=== PATIENT | female | born 1950 | race Caucasian/White ===

== ENCOUNTER 2018-10-13 13:21 | Outpatient (CLI) | payer MEDICARE ==
--- NOTE | 2018-10-14 08:49 | Mammography Report ---
Reason: SCREENING MAMMO Procedure Date: 10/13/2018 Accession Number: [id number] / [id number] Procedure: ALICIA - Screening Mammo w/Zack CPT Code: FULL RESULT: EXAM: Screening Mammo w/Zack DATE: 10/13/2018 2:30 PM CLINICAL HISTORY: Screening encounter. TECHNIQUE: Bilateral CC and MLO views were obtained. COMPARISON: 02/22/2016 through November 2009. FINDINGS: The breasts demonstrate diffuse fatty replacement bilaterally. There is a stable coarse right breast calcification, typically benign. No suspicious masses, clustered microcalcifications, or regions of architectural distortion are identified. IMPRESSION: Benign findings RECOMMENDATION: Routine annual screening unless otherwise clinically indicated. BIRADS CATEGORY 2: Benign findings STANDARD QUALIFYING STATEMENTS: 1. This examination was not reviewed with the aid of Computer-Aided Detection (CAD). 2. A negative or benign imaging report should not preclude biopsy if clinically suspicious findings are present. 3. Dense breasts may obscure an underlying neoplasm. 4. This examination was reviewed with the aid of 3D breast imaging (tomosynthesis).
== END 2018-10-13 13:22 | disposition home or self-care (01) ==
LOC: DI 13:21
PROVIDERS: ATTEND Internal Medicine
DX: Z12.31 Encounter for screening mammogram for malignant neoplasm of breast (principal)
CPT/HCPCS: 77063; 77067

== ENCOUNTER 2021-09-11 19:29 | Outpatient (CLI) | payer MEDICARE | END 2021-09-11 19:30 | disposition EMS.NT | LOC: EMS 19:29 | DX: Z03.89 Encounter for observation for other suspected diseases and conditions ruled out (principal) ==

== ENCOUNTER 2022-02-22 18:14 | Outpatient (CLI) | payer MEDICARE | END 2022-02-22 18:15 | disposition EMS.NT | LOC: EMS 18:14 | DX: S01.511A Laceration without foreign body of lip, initial encounter (principal); W01.198A Fall on same level from slipping, tripping and stumbling with subsequent striking against other object, initial encounter; Y92.030 Kitchen in apartment as the place of occurrence of the external cause | CPT/HCPCS: 81599 ==

== ENCOUNTER 2022-07-19 06:40 | Outpatient (CLI) | payer MEDICARE | END 2022-07-19 06:41 | disposition EMS.NT | LOC: EMS 06:40 | DX: Z03.89 Encounter for observation for other suspected diseases and conditions ruled out (principal) ==

== ENCOUNTER 2022-07-23 23:32 | Outpatient (CLI) | payer MEDICARE | END 2022-07-23 23:33 | disposition EMS.NT | LOC: EMS 23:32 | DX: Z03.89 Encounter for observation for other suspected diseases and conditions ruled out (principal) ==

== ENCOUNTER 2022-09-18 23:24 | Outpatient (CLI) | payer MEDICARE | END 2022-09-18 23:25 | disposition EMS.NT | LOC: EMS 23:24 | DX: R53.1 Weakness (principal) ==

== ENCOUNTER 2022-10-01 02:51 | Outpatient (CLI) | payer MEDICARE | END 2022-10-01 02:52 | disposition EMS.NT | LOC: EMS 02:51 | DX: Z03.89 Encounter for observation for other suspected diseases and conditions ruled out (principal) ==

== ENCOUNTER 2022-10-29 12:08 | Outpatient (CLI) | payer MEDICARE ==
--- NOTE | 2022-10-29 15:15 | XRAY Report ---
PROCEDURE: Knee 3 View LT INDICATIONS: LEFT KNEE PAIN TECHNIQUE: 3 views of the left knee were acquired. COMPARISON: None. FINDINGS: Bones: Generalized osteopenia. Joint space narrowing in the medial and lateral femorotibial compartm ents is well assessed on nonweightbearing images. Marginal osteophyte formation is seen. There is pro bable remodeling of the lateral tibial plateau articular surface although a mildly depressed fracture could appear similarly. Degenerative changes also seen in the anterior compartment. Soft tissues: Moderate joint effusion. No suspicious soft tissue calcifications. IMPRESSION: 1.Irregularity of the lateral tibial plateau articular surface may secondary to chronic osseous remod eling from degenerative changes versus a mildly depressed fracture. Recommend correlation with clinic al findings and history. MRI or CT could be performed for further evaluation if indicated clinically. 2.Moderate to severe osteoarthrosis. 3.Moderate joint effusion. Reviewed by: Jose Holloway MD on 10/29/2022 3:14 PM PST Approved by: Jose Holloway MD on 10/29/2022 3:14 PM PST Station ID: [id number]
== END 2022-10-29 12:09 | disposition home or self-care (01) ==
LOC: DI 12:08
PROVIDERS: ATTEND Internal Medicine
DX: M17.12 Unilateral primary osteoarthritis, left knee (principal); M25.462 Effusion, left knee; M85.89 Other specified disorders of bone density and structure, multiple sites

== ENCOUNTER 2022-10-29 12:11 | Outpatient (CLI) | payer MEDICARE ==
--- NOTE | 2022-10-29 15:54 | DEXA Report ---
PROCEDURE: Dexa Forearm INDICATIONS: OSTEOPENIA/ PT LIMITATION TECHNIQUE: Dual energy x-ray absorptiometry (DXA) was performed on a [employer] System. Regions measur ed are the AP Spine, femoral neck, and if needed forearm. COMPARISON: None. FINDINGS: Left forearm: Bone Mineral Density 0.950 g/cm/cm, T score 0.7, normal (T score greater or equal to -1.0: NORMAL) (T score from -1.1 to -2.4: OSTEOPENIA) (T score less than or equal to -2.5 to: OSTEOPOROSIS) Impression: Bone mineral density is within normal limits at the left forearm. Patients with diagnosis of osteoporosis or osteopenia should have regular bone mineral density assess ment. For those eligible for Medicare, routine testing is allowed once every 2 years. Testing frequ ency can be increased for patients who have rapidly progressing disease or for those who are receivin g medical therapy to restore bone mass. Reviewed by: Jose Holloway MD on 10/29/2022 3:52 PM PST Approved by: Jose Holloway MD on 10/29/2022 3:52 PM PST Station ID: [id number]
== END 2022-10-29 12:12 | disposition home or self-care (01) ==
LOC: DI 12:11
PROVIDERS: ATTEND Internal Medicine
DX: M85.89 Other specified disorders of bone density and structure, multiple sites (principal)

== ENCOUNTER 2022-10-29 12:12 | Outpatient (CLI) | payer MEDICARE ==
--- NOTE | 2022-10-30 10:46 | Mammography Report ---
BILATERAL DIGITAL SCREENING MAMMOGRAM 3D/2D: 10/29/2022 CLINICAL: Routine screening. Comparison is made to exams dated: 10/13/2018 mammogram, 02/12/2016 mammogram, 11/30/2009 mammogram, 11/15 mammogram, and 08/08/2004 mammogram - [facility]. Both breasts are almost entirely fatty (category a/<25% glandular tissue). No significant masses, calcifications, or other findings are seen in either breast. There has been no significant interval change. IMPRESSION: NEGATIVE There is no mammographic evidence of malignancy. A 1 year screening mammogram is recommended. Based on the Tyrer Cuzick model (a risk assessment model) the patients lifetime risk is 1.1% and her 10 year risk is 0.9%. According to the ACR, ACS, and NCCN guidelines, an annual breast MRI exam david g with mammogram is recommended if the patients lifetime risk is 20% or greater. This exam was interpreted at Station ID: [id number]. NOTE: For mammograms, a report in lay terms will be sent to the patient. Approximately 15% of breast malignancies will not be visualized mammographically. In the management of a palpable breast mass, a negative mammogram must not discourage biopsy of a clinically suspicious lesion. Electronically Signed By: Edwardo Wang M.D. acr/penrad:10/29/2022 17:22:56 ACR BI-RADS Category 1: Negative 3341F PARENCHYMAL PATTERN: (F) - The breast(s) demonstrate(s) diffuse fatty replacement. BI-RADS CATEGORY: (1) - 1 RECOMMENDATION: (ANNUAL) - Recommend routine annual screening mammography. [id number] 1 year screening LATERALITY: (B)
== END 2022-10-29 12:13 | disposition home or self-care (01) ==
LOC: DI 12:12
PROVIDERS: ATTEND Internal Medicine
DX: Z12.31 Encounter for screening mammogram for malignant neoplasm of breast (principal)

== ENCOUNTER 2022-11-24 18:55 | Outpatient (CLI) | payer MEDICARE | END 2022-11-24 18:56 | disposition EMS.NT | LOC: EMS 18:55 | DX: Z03.89 Encounter for observation for other suspected diseases and conditions ruled out (principal) ==

== ENCOUNTER 2022-12-21 19:22 | Outpatient (CLI) | payer MEDICARE | END 2022-12-21 19:23 | disposition critical access hospital (66) | LOC: EMS 19:22 | DX: R53.1 Weakness (principal); R29.6 Repeated falls | CPT/HCPCS: A0425; A0429 ==

== ENCOUNTER 2022-12-21 22:56 | Outpatient (CLI) | payer MEDICARE | END 2022-12-21 22:57 | disposition EMS.NT | LOC: EMS 22:56 | DX: Z03.89 Encounter for observation for other suspected diseases and conditions ruled out (principal) ==

== ENCOUNTER 2022-12-21 23:13 | Emergency (ER) | payer MEDICARE ==
[2022-12-21] MEDS ORDERED: HYDROcod/ACET 5/325 Prepack 4 PO STA (23:40)
[2022-12-21] MEDS ORDERED: ACETAMINOPHEN 325 MG TABLET PO STA (23:40)
--- NOTE | 2022-12-21 23:47 | ED Physician Documentation ---
PD HPI LOWER EXT INJURY - Stated complaint Stated Complaint: GLF - Chief complaint Chief Complaint: Trauma Ext - History of Present Illness PD HPI LOW EXT INJURY LOCATION: Right, Left, Knee, Ankle Type of injury: Fall (she has had trouble with walking due to arthritis in knees and wrists, and typically uses walker/scooter/walker to even get from bed to bathroom. She twisted ankle and fell yesterday, with pain in left ankle. Today twisted right ankle and has pain unable to stand on it. Called EMS.) Where injury occurred: Home Timing - onset: Today, Yesterday Timing - duration: Days Timing - details: Abrupt onset (has had mobilitiy difficulty for awhile due to knees and wrists. PCP referring her to rheumatology. Now with ankle pains/injuries.), Still present Improved by: Rest Worsened by: Moving, Other (walking) Associated symptoms: Swelling, Discolored (bruising at right ankle and left foot/toes). No: Weakness, Numbness Contributing factors: No: Anticoagulated Similar symptoms before: Has not had sx before Recently seen: Clinic Review of Systems Constitutional: denies: Fever, Chills Throat: denies: Sore throat Cardiac: denies: Chest pain / pressure Respiratory: denies: Cough GI: denies: Abdominal Pain Skin: denies: Abrasion (s), Laceration (s) Musculoskeletal: reports: Extremity pain (chronic of wrists and knees.). denies: Neck pain, Back pain Neurologic: reports: Generalized weakness. 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 - Present Medications Home Medications: Ambulatory Orders Medication Instructions Recorded Confirmed Metoprolol Tartrate 25 mg PO BID 06/23/14 12/21/22 Pravastatin Sodium 40 mg PO DAILY 11/14/15 12/21/22 Aspirin [[place] Aspirin] 81 mg PO DAILY 12/21/22 12/21/22 Benazepril HCl 20 mg PO DAILY 12/21/22 12/21/22 HYDROcod/ACETAM 5/325 [[place] 5/325] 1 ea PO Q6H PRN #18 tablet 12/22/22 - Allergies Allergies/Adverse Reactions: Allergies Allergy/AdvReac Type Severity Reaction Status Date / Time Penicillins Allergy Unknown Verified 12/21/22 23:27 - Social History Does the pt smoke?: No Smoking Status: Never smoker Does the pt drink ETOH?: No Does the pt have substance abuse?: No PD ED PE NORMAL - Vitals Vital signs reviewed: Yes - General General: Alert and oriented X 3, No acute distress, Well developed/nourished, Other (high BMI over 50. ) - HEENT HEENT: Atraumatic - Neck Neck: Supple, no meningeal sign, No bony TTP - Respiratory Respiratory: No respiratory distress, Clear bilaterally - Abdomen Abdomen: Soft, Non tender, Other (obese) - Derm Derm: Normal color, Warm and dry - Extremities Extremities: Other (right ankle with tenderness medial and lateral. Ecchymosis medial inframalleolar. Pain with ROM. Left ankle also tender. Dorsum foot swollen and with bruising foot and toes. Knees are also tender anteriorly. Both wrists tender to palpation and tapping. Positive Tinnels sign. Fingers stiff diffusely.) - Neuro Neuro: Alert and oriented X 3, No motor deficit, No sensory deficit Results - Vitals Vitals: Vital Signs - 24 hr 12/21/22 12/22/22 12/22/22 23:14 00:50 01:31 Temperature 36.2 C L 36.9 C Heart Rate 69 63 64 Respiratory 18 16 16 Rate Blood Pressure 146/77 H 150/83 H 128/63 O2 Saturation 97 100 97 12/22/22 06:40 Temperature 36.9 C Heart Rate 79 Respiratory 16 Rate Blood Pressure 136/52 H O2 Saturation 98 Oxygen O2 Source Room air - Labs Labs: Laboratory Tests 12/22/22 12/22/22 12/22/22 00:21 00:21 00:21 WBC 12.1 H RBC 3.49 L Hgb 9.9 L Hct 31.4 L MCV 90.0 MCH 28.4 MCHC 31.5 L RDW 13.4 Plt Count 292 MPV 11.7 H Neut # (Auto) 9.6 H Lymph # (Auto) 1.5 [place] # (Auto) 1.0 Eos # (Auto) 0.0 Baso # (Auto) 0.0 Absolute Nucleated RBC 0.00 Nucleated RBC % 0.0 ESR 15 Sodium Potassium Chloride Carbon Dioxide Anion Gap BUN Creatinine Estimated GFR (MDRD) Glucose Calcium Total Bilirubin AST ALT Alkaline Phosphatase Total Protein Albumin Globulin Albumin/Globulin Ratio Lipase Rheumatoid Factor NEGATIVE 12/22/22 00:21 WBC RBC Hgb Hct MCV MCH MCHC RDW Plt Count MPV Neut # (Auto) Lymph # (Auto) [place] # (Auto) Eos # (Auto) Baso # (Auto) Absolute Nucleated RBC Nucleated RBC % ESR Sodium 135 Potassium 4.3 Chloride 101 Carbon Dioxide 24 Anion Gap 10.0 BUN 34 H Creatinine 0.9 Estimated GFR (MDRD) 62 L Glucose 138 H Calcium 9.2 Total Bilirubin 0.4 AST 14 ALT 14 Alkaline Phosphatase 65 Total Protein 7.4 Albumin 3.8 Globulin 3.6 Albumin/Globulin Ratio 1.1 Lipase 38 Rheumatoid Factor - Rads (name of study) bilateral knees Radiology: Prelim report reviewed (arthritic changes, no fractures. ), See rad report bilateral ankles Radiology: Prelim report reviewed (no fractures. Right ankle with wide medial joint line concerning for ligament injury. ), EMP read indepedently, See rad report PD Medical Decision Making - ED course Complexity details: reviewed results, re-evaluated patient (she was unable to ambulate with walker to the bathroom across [place] even with ankle braces. Unclear if able to get by at home. ? if needs home hospice aide/etc. ), considered differential, d/w patient Social Determinants of Health: she is very obese, making maneuvering difficult. Likely acute ankle ligament tear/sprain. ED course: At shift change, verbal report to oncoming EDMD. SW consult ordered. Departure - Departure Disposition: 01 Home, Self Care Clinical Impression: Accidental fall, Ankle sprain, Arthritis of knee, Polyarthralgia, Anemia Condition: Stable Record reviewed to determine appropriate education?: Yes Instructions: ED Sprain Ankle W X Ray, ED Degenerative Joint Disease Follow-Up: NAYLA HURTADO MD [Primary Care Provider] - Prescriptions: HYDROcod/ACETAM 5/325 [[place] 5/325] 1 ea PO Q6H PRN #18 tablet PRN Reason: Pain Comments: Your x-rays show notable arthritis in both knees. There are some arthritis in the ankles as well. No signs of fractures in either area. The right ankle joint space is slightly wide suggesting some partial tearing of ligaments. This would correspond with the pain that you have and less support and also the bruising on the inside of the ankle. I presume you have a partial tear of ligament through the ankle. This should be able to heal typically with time but it would be aided by having a ankle support/brace to wear most the time in particular when you are up and walking but even rested over the next 2 to 3 weeks to allow better healing. We did do some blood tests to start evaluating for immune type arthritis condi tions such as rheumatoid, lupus, and general inflammatory causes. This will give a start point for further work-up and evaluation by a freight engineer (as your primary care is trying to refer you to). Continue with the steroid dosing that was prescribed by your primary care. To that add Tylenol every 4-6 hours if needed for pain or hydrocodone/acetaminophen if needed for worse pain. The blood test results will not be available for a couple of days as they are send outs for hospital. Contact your primary care office on Saturday to have them check the results and also see how they are doing with the rheumatoid referral. If your blood tests are fairly normal, other consideration from the freight engineer could be evaluation of some of the joint fluid to look for pseudogout/gout/calcium pyrophosphate deposition. I would defer to the freight engineer. I sent your prescriptions to your preferred pharmacy. I am prescribing a short course of narcotic pain medication for you. These are potentially dangerous and addictive medications that should be used carefully. These medications may constipate you. Take an uhsq-dew-euzjzcm stool softener such as docusate twice daily with plenty of water while taking these medications. If you go 24 hours without a bowel movement, take fopr-cbk-qfatgil MiraLAX, per package instructions. Do not drink or drive while taking these medications. If you received narcotic or sedating medications while in the emergency department do not drive for 24 hours. Store this medication in a safe, secure place and out of reach of children. It is a violation of federal law to give or sell this medication to another person or to use in a manner other than prescribed. The ED will not refill narcotic prescriptions, including prescriptions lost or stolen. You can dispose of unwanted medications at the [facility]'s office or at several pharmacies such as [facility]. A home health referral has been made. Within 24 to 72 hours helpful arrive for continued recovery from your injuries. My recommendation is to move slowly in her home as you usually have been and get help whenever you need it. Discharge Date/Time: 12/22/22 12:08
[2022-12-22 00:27] LABS: BASOPHILS % (AUTO) 0.2 %; EOSINOPHILS % (AUTO) 0.2 %; HCT - HEMATOCRIT 31.4 % (37.0-47.0); HGB - HEMOGLOBIN 9.9 g/dL (12.0-16.0); LYMPHOCYTES # (AUTO) 1.5 10^3/uL (1.5-3.5); LYMPHOCYTES % (AUTO) 12.1 %; MEAN CORPUSCULAR HEMOGLOBIN 28.4 pg (27.0-31.0); MEAN CORPUSCULAR HGB CONC 31.5 g/dL (32.0-36.0); MEAN PLATELET VOLUME 11.7 fL (7.9-10.8); MONOCYTES % (AUTO) 8.1 %; NEUTROPHILS # (AUTO) 9.6 10^3/uL (1.5-6.6); NEUTROPHILS % (AUTO) 78.9 %; PLT - PLATELET COUNT 292 10^3/uL (130-450); RED BLOOD COUNT 3.49 10^6/uL (4.20-5.40); RED CELL DISTRIBUTION WIDTH 13.4 % (12.0-15.0); WHITE BLOOD COUNT 12.1 x10^3/uL (4.8-10.8)
[2022-12-22] MEDS ORDERED: HYDROcod/ACETAM 5/325 MG TABLET PO STA ×2 (00:43→11:43)
[2022-12-22] MEDS ORDERED: KETOROLAC 30 MG/ML VIAL IM STA (00:43)
--- NOTE | 2022-12-22 00:49 | XRAY Report ---
PROCEDURE: Ankle 3 View BILAT INDICATIONS: fall with twisting injury both sides, R>L. TECHNIQUE: 4 views of each ankle ankle were acquired. COMPARISON: None. FINDINGS: Right: Bones: No fractures or dislocations. There is widening of the ankle mortise laterally. There is mod erate degeneration dorsally in the mid foot. There is a small ossicle inferior to the lateral malleol us suggestive of a prior avulsion injury. Soft tissues: No tibiotalar joint effusion. There is periarticular soft tissue swelling laterally. Left: Bones: No fractures or dislocations. There is slight widening of the ankle mortise laterally. There is moderate degeneration dorsally in the mid foot. No suspicious bony lesions. Soft tissues: No tibiotalar joint effusion. There is periarticular soft tissue swelling, most promin ent laterally. IMPRESSION: 1. No fracture or dislocation. 2. Widening of the ankle mortise laterally, right greater than left. Findings are suggestive of ligam entous injury or fracture. Reviewed by: Bebeto Huang MD on 12/22/2022 12:47 AM PST Approved by: Bebeto Huang MD on 12/22/2022 12:47 AM PST Station ID: [id number]
--- NOTE | 2022-12-22 00:52 | XRAY Report ---
PROCEDURE: Knee 3 View BILAT INDICATIONS: fall with landing onto knees. TECHNIQUE: 4 views of each knee were acquired. COMPARISON: None. FINDINGS: Right knee: Bones: No fractures or dislocations. There is severe joint space narrowing in the medial compartmen t with subchondral sclerosis. There is tricompartmental osteophytosis. No suspicious bony lesions. Soft tissues: No joint effusion. No suspicious soft tissue calcifications. Left knee: Bones: No fractures or dislocations. No suspicious bony lesions. There is tricompartmental osteoph ytosis. Severe joint space tearing in the medial compartment with Soft tissues: No joint effusion. No suspicious soft tissue calcifications. IMPRESSION: 1. No fracture or dislocation. 2. Bilateral osteoarthritic changes including severe degeneration in the medial compartment. Reviewed by: Bebeto Huang MD on 12/22/2022 12:51 AM PST Approved by: Bebeto Huang MD on 12/22/2022 12:51 AM [facility] Station ID: [id number]
[2022-12-22 01:05] LABS: RHEUMATOID FACTOR NEGATIVE (Negative)
[2022-12-22 01:07] LABS: ALBUMIN 3.8 g/dL (3.2-5.5); ALBUMIN/GLOBULIN RATIO 1.1 (1.0-2.2); BILIRUBIN,TOTAL 0.4 mg/dL (0.2-1.0); CALCIUM 9.2 mg/dL (8.5-10.3); CREATININE 0.9 mg/dL (0.4-1.0); POTASSIUM 4.3 mmol/L (3.5-5.0); TOTAL PROTEIN 7.4 g/dL (6.7-8.2)
[2022-12-22 06:42] VITALS: BP 136/52
[2022-12-24 15:08] LABS: ANTI-DNA (DS) AB QN 2 IU/mL (0-9); CENTROMERE B ANTIBODIES <0.2 AI (0.0-0.9); CHROMATIN ANTIBODIES <0.2 AI (0.0-0.9); JO-1 AB <0.2 AI (0.0-0.9); RIBOSOMAL P ANTIBODIES <0.2 AI (0.0-0.9); RNP ANTIBODIES 0.2 AI (0.0-0.9); SCLERODERMA-70 ANTIBODIES <0.2 AI (0.0-0.9); SJOGREN'S ANTI-SS-A <0.2 AI (0.0-0.9); SJOGREN'S ANTI-SS-B <0.2 AI (0.0-0.9); SMITH ANTIBODIES <0.2 AI (0.0-0.9); SMITH/RNP ANTIBODIES <0.2 AI (0.0-0.9)
== END 2022-12-22 12:08 | disposition home or self-care (01) ==
LOC: EDUNIT# → ED 23:13
DX: E66.9 Obesity, unspecified (principal); Z68.43 Body mass index [BMI] 50.0-59.9, adult; M17.0 Bilateral primary osteoarthritis of knee; M19.072 Primary osteoarthritis, left ankle and foot; M19.071 Primary osteoarthritis, right ankle and foot; S93.401A Sprain of unspecified ligament of right ankle, initial encounter; X50.1XXA Overexertion from prolonged static or awkward postures, initial encounter; W18.39XA Other fall on same level, initial encounter; Y93.01 Activity, walking, marching and hiking; Y92.009 Unspecified place in unspecified non-institutional (private) residence as the place of occurrence of the external cause
CPT/HCPCS: 36415; 73562; 73610; 80053; 83690; 85025; 85651; 86200; 86225; 86235; 86430; 96372; 99283; 99284; A9270

== ENCOUNTER 2023-01-19 08:05 | Emergency (ER) | payer MEDICARE ==
--- NOTE | 2023-01-19 08:14 | ED Physician Documentation ---
PD HPI LOWER EXT INJURY - Stated complaint Stated Complaint: RT KNEE/FT PX - History obtained from History obtained from: Patient, EMS - History of Present Illness PD HPI LOW EXT INJURY LOCATION: Right, Foot Type of injury: Twist Where injury occurred: Home Timing - onset: Today Timing - details: Abrupt onset (she was getting up out of scooter and her foot tip caught on rug and bent back, causing her to fall forward. She was then unable to get up due to general strength and obesity. called ems for help. they brought her here for eval.) Review of Systems Skin: denies: Abrasion (s), Laceration (s) PD PAST MEDICAL HISTORY - Past Medical History Cardiovascular: Hypertension Endocrine/Autoimmune: Type 2 diabetes - Past Surgical History Past Surgical History: Yes /HVAC ESTIMATOR: Hysterectomy - Present Medications Home Medications: Ambulatory Orders Medication Instructions Recorded Confirmed Metoprolol Tartrate 25 mg PO BID 06/23/14 12/21/22 Pravastatin Sodium 40 mg PO DAILY 11/14/15 12/21/22 Aspirin [[place] Aspirin] 81 mg PO DAILY 12/21/22 12/21/22 Benazepril HCl 20 mg PO DAILY 12/21/22 12/21/22 HYDROcod/ACETAM 5/325 [[place] 5/325] 1 ea PO Q6H PRN #18 tablet 12/22/22 Chondroitin Sulfate/Turmeric 1 each PO DAILY 30 Days #30 tablet 01/19/23 [Invigoflex Cs 600-125 mg Cplt] Meloxicam [Mobic] 7.5 mg PO BID 30 Days #60 tablet 01/19/23 - Allergies Allergies/Adverse Reactions: Allergies Allergy/AdvReac Type Severity Reaction Status Date / Time Penicillins Allergy Unknown Verified 01/19/23 08:16 - Social History Does the pt smoke?: No Smoking Status: Never smoker Does the pt drink ETOH?: No Does the pt have substance abuse?: No - Immunizations Immunizations are current?: No Immunizations: TDAP >10years/unknown - POLST Patient has POLST: No PD ED PE NORMAL - Vitals Vital signs reviewed: Yes - General General: Alert and oriented X 3, Well developed/nourished, Other (high bmi. appears uncomfortable with foot and ankle movement. in pain from knees which she says is baseline. ) - HEENT HEENT: Atraumatic - Derm Derm: Normal color, Warm and dry - Extremities Extremities: Other (both ankles with loose ligaments and poor strength. Right foot with tenderness and bruising dorsum mid foot and pain with inversion stress testing. Achilles firm and intact. ) - Neuro Neuro: Alert and oriented X 3, No motor deficit, No sensory deficit, Normal speech Results - Vitals Vitals: Oxygen O2 Source Room air - Rads (name of study) right foot Relevant Findings:: Prelim report reviewed, EMP independent interpretation of test (no fractures seen; arthritic changes noted. ), See rad report PD Medical Decision Making - ED course Social Determinants of Health: she lives alone but does have home health aides frequently and they are available when she calls for extra. but mostly she minimally weight bears, with standing enough for pivot and transfer from scooter to walker to toilet. ED course: she has foot sprain with it hurting to stand. her knees chronically hurt as well. Needs to stand/walk minimally. Initially was not able to stand after eval here. Foot and knees still hurting. Given pain meds to help with that and ankle brace to support foot/ankle. after a few hours of time to rest, her ankle was improved a bit better to be able to stand. Social work talked with the patient about home versus other options. the patient did not have funds nor desire for SNF and prefers to go home. She was to call one of her aides to try to be there when patient arrives back. given foot injury, obesity, and minimal walking ability baseline, the patient was not appropriate for taxi/private vehicle. Departure - Departure Disposition: 01 Home, Self Care Clinical Impression: Difficulty walking Foot sprain Qualifiers: Encounter type: initial encounter Laterality: right Qualified Code(s): S93.601A - Unspecified sprain of right foot, initial encounter Knee pain Qualifiers: Chronicity: chronic Laterality: bilateral Qualified Code(s): M25.561 - Pain in right knee; M25.562 - Pain in left knee; G89.29 - Other chronic pain Condition: Stable Record reviewed to determine appropriate education?: Yes Instructions: ED Sprain Foot Follow-Up: [facility] [Provider Group] Prescriptions: Chondroitin Sulfate/Turmeric [Invigoflex Cs 600-125 mg Cplt] 1 each PO DAILY 30 Days #30 tablet Meloxicam [Mobic] 7.5 mg PO BID 30 Days #60 tablet Comments: Use the ankle braces to help support the ankles and less likely to twist and sprain the ankle and foot. Regarding your knees, we could try a different anti-inflammatory that lasts a little bit longer and see if that helps more consistently through the day. Meloxicam 7.5 mg twice daily. To that I would suggest using some Tylenol regularly 3-4 times daily. It may not make a dramatic difference but can help to even take a little the edge off the pain. To that add hydrocodone every 6-8 hours if needed at times of worst pain. Your knees may be degenerative enough to not be able to repair the cartilage but we could still try helping a bit with a supplement called chondroitin. Sometimes this helps rebuild the cartilage some. Continue with the physical therapy. Follow-up with your primary care and orthopedics regarding further assessment. You said you need surgery on your knees and hands. I sent your prescriptions to the [facility] mail order pharmacy through [employer]. Discharge Date/Time: 01/19/23 14:42
[2023-01-19 08:16] VITALS: BP 153/80
[2023-01-19] MEDS ORDERED: oxyCODONE 5 MG TABLET PO STA ×2 (08:19→10:07)
--- NOTE | 2023-01-19 09:00 | XRAY Report ---
PROCEDURE: Foot 3 View RT INDICATIONS: fall, foot twisted and painful TECHNIQUE: 3 views of the foot were acquired. COMPARISON: None FINDINGS: Bones: Diffusely decreased mineralization. This prevents accurate evaluation for nondisplaced fractu re. No displaced fractures are identified. Bone alignment is normal. Incidental note of moderate dors al midfoot degenerative spurs and calcaneal spurs. No fractures or dislocations. No suspicious bony lesions. Soft tissues: Prominent forefoot dorsal soft tissue swelling. No soft tissue gas or radiodense forei gn body. No tibiotalar joint effusion. Achilles tendon appears normal. IMPRESSION: 1. No visible displaced acute fractures. 2. Decreased mineralization prevents accurate evaluation for nondisplaced fractures. A nondisplaced f racture is not excluded. If there is continued concern, immobilization and reimaging in 10-14 days is recommended. Reviewed by: Vicky Berrios MD on 01/19/2023 8:58 AM PST Approved by: Vicky Berrios MD on 01/19/2023 8:58 AM PST Station ID: [id number]
[2023-01-19] MEDS ORDERED: KETOROLAC 30 MG/ML VIAL IM STA (09:32)
== END 2023-01-19 14:42 | disposition home or self-care (01) ==
LOC: EDUNIT# → ED 08:05
DX: S93.601A Unspecified sprain of right foot, initial encounter (principal); R26.2 Difficulty in walking, not elsewhere classified; W01.0XXA Fall on same level from slipping, tripping and stumbling without subsequent striking against object, initial encounter; Y93.89 Activity, other specified; Y92.89 Other specified places as the place of occurrence of the external cause; M25.562 Pain in left knee; M25.561 Pain in right knee; G89.29 Other chronic pain; E66.01 Morbid (severe) obesity due to excess calories; Z68.43 Body mass index [BMI] 50.0-59.9, adult
CPT/HCPCS: 73630; 96372; 99283; 99284; A9270

== ENCOUNTER → 2023-01-19 | Outpatient (CLI) | payer MEDICARE | END | disposition home or self-care (01) | LOC: EMS 14:45 | PROVIDERS: ATTEND Emergency Medicine | DX: S93.401A Sprain of unspecified ligament of right ankle, initial encounter (principal); W19.XXXA Unspecified fall, initial encounter; E66.01 Morbid (severe) obesity due to excess calories | CPT/HCPCS: A0425; A0428 ==

== ENCOUNTER → 2023-01-19 | Outpatient (CLI) | payer MEDICARE | END | disposition critical access hospital (66) | LOC: EMS 07:48 | DX: M79.671 Pain in right foot (principal); M25.561 Pain in right knee; W18.39XA Other fall on same level, initial encounter; Y93.01 Activity, walking, marching and hiking; Y92.038 Other place in apartment as the place of occurrence of the external cause | CPT/HCPCS: A0425; A0429 ==

== ENCOUNTER 2023-02-17 07:48 | Outpatient (CLI) | payer MEDICARE | END 2023-02-17 23:59 | disposition critical access hospital (66) | LOC: EMS 07:48 | DX: R53.1 Weakness (principal); R60.0 Localized edema | CPT/HCPCS: A0425; A0429 ==

== ENCOUNTER 2023-02-17 08:04 | Emergency (ER) | payer MEDICARE ==
--- NOTE | 2023-02-17 08:18 | ED Physician Documentation ---
PD HPI FOCAL NEURO - Stated complaint Stated Complaint: WEAKNESS - Chief complaint Chief Complaint: General - History obtained from History obtained from: Patient (Patient states her lift chair broke 5 days ago and she has been unable to get up to standing. Fire department has been coming several times daily to help her with that with lift assist. She typically had caregivers but a couple of them are sick or injured. She states her legs feel weaker/swollen.), EMS - History of Present Illness Timing - onset: How many days ago (4 days of unable to get up and to bathroom due to above issues. She has called FD for lift assist 5-6 times per day for past several days to assist.) Timing - duration: Days (4) Timing - details: Abrupt onset (The patient states her difficulties really relate to her power chair breaking 4 days ago. She has been having to sleep on a sofa with her legs just up on a ottoman. She states she has had more leg swelling and general weakness and unable to get up and get assistance. Less oral intake.), Still present Severity of deficit: Moderate Weakness: Other (generalized - no focal weakness.) Numbness: No: Face, Arm, Leg Associated symptoms: Other (general weakness). No: Headache, Nausea / vomiting Similar symptoms before: Diagnosis (Prior weak ankles and has ankle braces bilaterally. Bilateral knee pains due to arthritis and is due to have knee replacements bilaterally. General weakness and mobility difficulty due to obesity.) Review of Systems Constitutional: denies: Fever, Chills Nose: denies: Rhinorrhea / runny nose, Congestion Throat: denies: Sore throat Cardiac: denies: Chest pain / pressure Respiratory: denies: Dyspnea, Cough Neurologic: reports: Generalized weakness. denies: Near syncope, Altered mental status, Headache PD PAST MEDICAL HISTORY - Past Medical History Cardiovascular: Hypertension Respiratory: None Endocrine/Autoimmune: None, Type 2 diabetes Musculoskeletal: Osteoarthritis - Past Surgical History Past Surgical History: Yes /CRUSHER OPERATOR: Hysterectomy - Present Medications Home Medications: Ambulatory Orders Medication Instructions Recorded Confirmed Metoprolol Tartrate 25 mg PO BID 06/23/14 02/17/23 Pravastatin Sodium 40 mg PO DAILY 11/14/15 02/17/23 Aspirin [Searcy Aspirin] 81 mg PO DAILY 12/21/22 02/17/23 Benazepril HCl 20 mg PO DAILY 12/21/22 02/17/23 - Allergies Allergies/Adverse Reactions: Allergies Allergy/AdvReac Type Severity Reaction Status Date / Time Penicillins Allergy Unknown Verified 02/17/23 08:12 - Social History Does the pt smoke?: No Smoking Status: Never smoker Does the pt drink ETOH?: No Does the pt have substance abuse?: No - Immunizations Immunizations are current?: No Immunizations: TDAP >10years/unknown - POLST Patient has POLST: No PD ED PE NORMAL - Vitals Vital signs reviewed: Yes - General General: Alert and oriented X 3, Well developed/nourished - HEENT HEENT: Atraumatic, Pharynx benign - Neck Neck: Supple, no meningeal sign, No adenopathy - Cardiac Cardiac: RRR, No murmur - Respiratory Respiratory: Clear bilaterally - Abdomen Abdomen: Soft, Non tender - Derm Derm: Normal color, Warm and dry - Extremities Extremities: Other - Neuro Neuro: Alert and oriented X 3, No motor deficit (She has symmetric movement. She does have general weakness of both legs but she is able to move her feet and ankles well and partly lift up her legs. Arms seem better strength and still have symmetric movement.), No sensory deficit, Normal speech Results - Vitals Vitals: Vital Signs - 24 hr 02/17/23 02/17/23 02/17/23 08:12 08:49 10:16 Temperature 36.5 C Heart Rate 61 55 L 62 Respiratory 20 16 14 Rate Blood Pressure 131/72 H 131/50 H 130/65 O2 Saturation 98 97 96 02/17/23 02/17/23 02/17/23 11:16 13:00 14:23 Temperature 36.1 C L Heart Rate 61 59 L 58 L Respiratory 16 16 16 Rate Blood Pressure 128/72 131/68 H 133/70 H O2 Saturation 97 98 98 02/17/23 16:00 Temperature Heart Rate 69 Respiratory 16 Rate Blood Pressure 123/61 O2 Saturation 97 Oxygen O2 Source Room air - Labs Labs: Laboratory Tests 02/17/23 02/17/23 08:31 08:31 WBC 8.1 RBC 3.73 L Hgb 10.2 L Hct 32.9 L MCV 88.2 MCH 27.3 MCHC 31.0 L RDW 14.2 Plt Count 244 MPV 11.6 H Neut # (Auto) 5.7 Lymph # (Auto) 1.5 [place] # (Auto) 0.7 Eos # (Auto) 0.1 Baso # (Auto) 0.0 Absolute Nucleated RBC 0.00 Nucleated RBC % 0.0 Sodium 137 Potassium 3.9 Chloride 107 Carbon Dioxide 22 Anion Gap 8.0 BUN 28 H Creatinine 0.8 Estimated GFR (MDRD) 71 L Glucose 128 H Calcium 9.4 Magnesium 1.2 L Total Bilirubin 0.4 AST 15 ALT 15 Alkaline Phosphatase 66 Total Protein 7.3 Albumin 3.7 Globulin 3.6 Albumin/Globulin Ratio 1.0 Lipase 52 H PD Medical Decision Making - ED course Complexity details: considered differential (General weakness and difficulty ambulating and knee pains and deconditioning and obesity. She typically barely gets by with power lift chair and a's and use of scooter or walker. However her power chair and her home health aides are limited this week. She is getting a new chair tomorrow delivered), d/w patient Departure - Departure Clinical Impression: Generalized weakness, Bilateral knee pain Condition: Stable Record reviewed to determine appropriate education?: Yes
[2023-02-17 08:39] LABS: BASOPHILS % (AUTO) 0.5 %; EOSINOPHILS # (AUTO) 0.1 10^3/uL (0.0-0.7); EOSINOPHILS % (AUTO) 1.6 %; HCT - HEMATOCRIT 32.9 % (37.0-47.0); HGB - HEMOGLOBIN 10.2 g/dL (12.0-16.0); LYMPHOCYTES # (AUTO) 1.5 10^3/uL (1.5-3.5); LYMPHOCYTES % (AUTO) 17.9 %; MEAN CORPUSCULAR HEMOGLOBIN 27.3 pg (27.0-31.0); MEAN CORPUSCULAR VOLUME 88.2 fL (81.0-99.0); MEAN PLATELET VOLUME 11.6 fL (7.9-10.8); MONOCYTES # (AUTO) 0.7 10^3/uL (0.0-1.0); MONOCYTES % (AUTO) 8.8 %; NEUTROPHILS # (AUTO) 5.7 10^3/uL (1.5-6.6); NEUTROPHILS % (AUTO) 70.8 %; PLT - PLATELET COUNT 244 10^3/uL (130-450); RED BLOOD COUNT 3.73 10^6/uL (4.20-5.40); RED CELL DISTRIBUTION WIDTH 14.2 % (12.0-15.0); WHITE BLOOD COUNT 8.1 x10^3/uL (4.8-10.8)
[2023-02-17 08:51] LABS: ALBUMIN 3.7 g/dL (3.2-5.5); BILIRUBIN,TOTAL 0.4 mg/dL (0.2-1.0); CALCIUM 9.4 mg/dL (8.5-10.3); CREATININE 0.8 mg/dL (0.4-1.0); MAGNESIUM 1.2 mg/dL (1.7-2.8); POTASSIUM 3.9 mmol/L (3.5-5.0); TOTAL PROTEIN 7.3 g/dL (6.7-8.2)
[2023-02-17] MEDS ORDERED: HYDROcod/ACETAM 5/325 MG TABLET PO STA (11:33)
[2023-02-17] MEDS: MELOXICAM 7.5 MG TABLET PO SCH (11:39)
[2023-02-17] MEDS ORDERED: ACETAMINOPHEN 325 MG TABLET PO STA (22:32)
[2023-02-18] MEDS ORDERED: ZINC OXIDE 20% OINT 30 GM TUBE TOP ONE (03:13)
[2023-02-18] MEDS ORDERED: ZINC OXIDE 20% OINT 30 GM TUBE TOP STA (03:15)
[2023-02-18] MEDS: MELOXICAM 7.5 MG TABLET PO SCH (09:08)
--- NOTE | 2023-02-18 12:52 | XRAY Report ---
PROCEDURE: Knee 2 View RT INDICATIONS: chronic knee pain, increased recent fall TECHNIQUE: 2 views of the left knee(s) were acquired. COMPARISON: None. FINDINGS: Bones: Tricompartmental degenerative changes with tricompartmental osteophytes. There is medial join t space narrowing. Soft tissues: No effusion. No suspicious soft tissue calcifications or masses. IMPRESSION: Osteoarthritis with medial joint space narrowing. Reviewed by: Edwardo Wang on 02/18/2023 12:50 PM PDT Approved by: Edwardo Wang on 02/18/2023 12:50 PM PDT Station ID: [id number]
--- NOTE | 2023-02-18 14:35 | ED Physician Documentation ---
ED Addendum - Addendum Addendum: 02/18/23 14:31 The patient is complaining a lot of pain in her knees. She had slumped forward onto her knees the evening of coming in to the ER. We can do an x-ray on the right knee which is most tender with some swelling. Otherwise maintaining her current anti-inflammatories and regular medication. I added hydrocodone every 6 hours if needed for pain. She had been getting this. Physical therapy Lisha came by and evaluated the patient. There were unable to get her more than bedside and trying to stand but stopped at that because of the pain in the knees. Social work Jaimie talked with the patient and her varnish blender. Apparently there has been a adult care facility that has approved the patient and the patient has just needed to consent and go there. This apparently was just this past week. However the patient is looking more at needs of half-way facility perhaps and so social work is looking at insurance approval for [facility] that does have a bed available. Unfortunately the approval for that may take a day or 2. That would be the better option for the patient so it may be reasonable to give that timeframe for approval or not for the SNF and otherwise the adult care facility as a backup.
[2023-02-19] MEDS: HYDROcod/ACETAM 5/325 MG TABLET PO PRN ×2 (00:21→13:51)
[2023-02-19] MEDS: MELOXICAM 7.5 MG TABLET PO SCH (09:54)
--- NOTE | 2023-02-19 17:22 | ED Physician Documentation ---
ED Addendum - Addendum Addendum: 02/19/23 17:21 Social work was evaluating the patient's insurance and status and she apparently did not qualify for [facility] but does have the adult family home available. They can accept her tomorrow. They will get a bariatric bed. To continue her usual medications prescribed through her primary care. She will need ambulance transfer to there because of obesity and inability to walk because of knee pain.
[2023-02-20] MEDS ORDERED: traZODone 50 MG TABLET PO STA (02:20)
[2023-02-20] MEDS ORDERED: ACETAMINOPHEN 325 MG TABLET PO STA (02:21)
[2023-02-20] MEDS: MELOXICAM 7.5 MG TABLET PO SCH (11:14)
--- NOTE | 2023-02-20 15:16 | ED Physician Documentation ---
ED Addendum - Addendum Addendum: Patient signed out to me at shift change. She has been boarding pending placement at an adult family home. Per social work she has been accepted in transport should be here for her around 1800 p.m. Departure - Departure Disposition: 01 Home, Self Care Clinical Impression: Generalized weakness, Bilateral knee pain Condition: Stable
--- NOTE | 2023-02-20 17:29 | ED Physician Documentation ---
ED Addendum - Addendum Addendum: 02/20/23 17:29 I was called into the room by patient and a close friend. This was my first interaction with her. They have decided they do not want to go to the adult family home and are very worried about her left ankle and foot. The inability to ambulate is brand-new and the friend thinks it is due to her ankle/foot being deformed. On examination she does have an inversion deformity of the left ankle with tenderness to both malleoli. The proximal fibula on the left is not te nder. I will obtain x-rays of those. I notified the health community outreach advocate that she would not be going to the adult family home tonight as they have refused transfer. 02/20/23 18:20 Subsequently x-rays of the left ankle and foot showing comminuted fracture of the talus and widening of the tibiotalar joint as well as a spiral fracture of the mid fifth metatarsal. This was discussed by phone with our on-call orthopedist, Dr. Lu who recommends a CT of the talus to better evaluate and this is ordered. 02/20/23 19:[address] images were reviewed with the orthopedist and he recommends splinting with some attempts to correct her extreme plantarflexion. She was placed in a short leg posterior fiberglass splint by me, I tried to get her a little more towards a neutral angle at her ankle but this was limited by pain.
--- NOTE | 2023-02-20 18:07 | XRAY Report ---
PROCEDURE: Ankle 3 View LT INDICATIONS: ankle/foot injury TECHNIQUE: 3 views of the ankle were acquired. COMPARISON: X-ray ankle, bilateral, 12/21/2022. FINDINGS: Bones: There is a comminuted fracture of the talus involving the talar dome and extending to the ant erior process. There is widening of the talar joint more pronounced laterally. No suspicious bony l esions. Soft tissues: No tibiotalar joint effusion. Achilles tendon appears normal. Diffuse soft tissue swe lling. IMPRESSION: 1. Comminuted fracture of the talus. 2. Widening of tibiotalar joint. Reviewed by: Johnny Boo MD on 02/20/2023 6:05 PM PDT Approved by: Johnny Boo MD on 02/20/2023 6:05 PM PDT Station ID: [id number]
--- NOTE | 2023-02-20 18:11 | XRAY Report ---
PROCEDURE: Foot 3 View LT INDICATIONS: ankle/foot injury TECHNIQUE: 3 views of the foot were acquired. COMPARISON: X-ray left ankle, 02/20/2023. FINDINGS: Suboptimal examination. There is rotation on the lateral view. Bones: There is a mildly displaced fracture of the distal fifth metatarsal shaft. Comminuted fractur e of the talus, which is better seen on the comparison ankle radiograph. Soft tissues: No suspicious soft tissue calcifications or masses. IMPRESSION: 1. Comment fracture of talus. Please see separate ankle x-ray report. 2. Mildly displaced fifth metatarsal fracture. Reviewed by: Johnny Boo MD on 02/20/2023 6:09 PM PDT Approved by: Johnny Boo MD on 02/20/2023 6:09 PM PDT Station ID: [id number]
--- NOTE | 2023-02-20 19:41 | CT Report ---
PROCEDURE: LOWER EXTREMITY WO - LT INDICATIONS: talus frx, please do 3D recon TECHNIQUE: Noncontrast 3-mm axial sections acquired from the distal tibial shaft to the talar dome, with coronal and sagittal reformats. For radiation dose reduction, the following was used: automated exposure c ontrol, adjustment of mA and/or kV according to patient size. COMPARISON: X-ray left ankle, 02/20/2023. FINDINGS: Image quality: Excellent. Bones: There is diffuse osteopenia. No acute fracture and talus. The abnormal appearance of talus on the comparison x-ray is likely caused by artifact due to rotation. There is fracture of the anterior process of calcaneus, uncertain chronicity. Oblique fracture is noted in the fifth metatarsal, uncertain chronicity. Suspect old avulsion fracture in the tip of the fibula. There is asymmetric widening of tibiotalar joint space laterally. Small tibiotalar joint effusion. Mi [id number] degenerative joint disease is noted in ankle and hindfoot. Calcaneal spurring. Soft tissues: Mild soft tissue swelling. Mild thickening of the Achilles tendon suggesting Achilles tendinitis. Impression: 1. No fracture involving talus. Abnormal appearance of talus on x-ray is likely due to artifact from rotation. 2. Fracture of the anterior process of calcaneus, uncertain chronicity. 3. Fracture of the fifth metatarsal of uncertain chronicity. 4. Suspect old fibular tip avulsion fracture. 5. Asymmetric widening of the tibiotalar joint, more pronounced laterally. The findings suggest tendi nosis/ligamentous injury. MRI would be helpful. 6. Osteopenia. 7. Degenerative changes in ankle and hindfoot. Reviewed by: Johnny Boo MD on 02/20/2023 7:40 PM PDT Approved by: Johnny Boo MD on 02/20/2023 7:40 PM PDT Station ID: [id number]
[2023-02-21] MEDS ORDERED: SODIUM CHLORIDE 0.9% 1,000 ML IV STA (08:13)
--- NOTE | 2023-02-21 08:16 | ED Physician Documentation ---
ED Addendum - Addendum Addendum: 02/21/23 08:14 73-year-old female brought into the emergency department after 13 calls to paramedics to lift assist at her home. She states that more than 2 weeks ago her lift chair broke she has been having more difficulty getting in and out of her chair and she had to call the fire department. She eventually was brought to the emergency department and she has been here for about 4 days. She has been eating and drinking normally. She has not been able to get out of bed or out of her chair in a normal fashion for 2 weeks. I suspect the dehydration may play a role and I interrogated her inferior vena cava with POCUS and found a vessel of point .92 cm with complete collapse consistent with a deficit of about 2 L. I have offered a liter of saline to be given intravenously which the patient readily accepted stating she wants to get her strength back. She has a level of confusion that appears improved. 02/21/23 15:29The patient does need assistance at home and she will get respite care at [facility]. . 02/21/23 15:38 02/21/23 18:48 Impression: Generalized weakness, bilateral knee pain, dehydration and foot fracture left. Plan: the patient was discharged to respite at [facility].
[2023-02-21 15:41] VITALS: BP 135/63
[2023-02-21] MEDS ORDERED: HYDROcod/ACETAM 5/325 MG TABLET PO STA (15:58)
[2023-02-21] MEDS: MELOXICAM 7.5 MG TABLET PO SCH (16:40)
== END 2023-02-21 17:04 | disposition home or self-care (01) ==
LOC: EDUNIT# → ED 08:04
DX: R53.1 Weakness (principal); M25.562 Pain in left knee; M25.561 Pain in right knee; E86.0 Dehydration; R41.0 Disorientation, unspecified; S92.022A Displaced fracture of anterior process of left calcaneus, initial encounter for closed fracture; S92.352A Displaced fracture of fifth metatarsal bone, left foot, initial encounter for closed fracture; X58.XXXA Exposure to other specified factors, initial encounter; E66.01 Morbid (severe) obesity due to excess calories; Z68.42 Body mass index [BMI] 45.0-49.9, adult; Z76.4 Other boarder to healthcare facility
CPT/HCPCS: 36415; 73560; 73610; 73630; 73700; 80053; 83690; 83735; 85025; 96360; 99284; A9270

== ENCOUNTER 2023-02-21 17:00 | Outpatient (CLI) | payer MEDICARE | END 2023-02-21 23:59 | disposition home or self-care (01) | LOC: EMS 17:00 | PROVIDERS: ATTEND Emergency Medicine | DX: S92.902A Unspecified fracture of left foot, initial encounter for closed fracture (principal); R41.0 Disorientation, unspecified; E86.0 Dehydration | CPT/HCPCS: A0425; A0428 ==

== ENCOUNTER 2023-03-08 01:48 | Outpatient (CLI) | payer MEDICARE | END 2023-03-08 23:59 | disposition EMS.NT | LOC: EMS 01:48 | DX: Z03.89 Encounter for observation for other suspected diseases and conditions ruled out (principal) ==

== ENCOUNTER 2023-03-13 14:53 | Outpatient (CLI) | payer MEDICARE | END 2023-03-13 23:59 | disposition critical access hospital (66) | LOC: EMS 14:53 | DX: M25.552 Pain in left hip (principal); M79.652 Pain in left thigh; R53.1 Weakness; Z74.09 Other reduced mobility | CPT/HCPCS: A0425; A0429; A0888 ==

== ENCOUNTER 2023-04-04 14:54 | Outpatient (CLI) | payer MEDICARE, OTHER | END 2023-04-04 14:55 | disposition critical access hospital (66) | LOC: EMS 14:54 | DX: R23.8 Other skin changes (principal); R60.0 Localized edema; Z74.09 Other reduced mobility | CPT/HCPCS: A0425; A0429 ==

== ENCOUNTER 2023-04-04 15:15 | Emergency (ER) | payer MEDICARE, OTHER ==
--- NOTE | 2023-04-04 15:30 | ED Physician Documentation ---
History of Present Illness - Stated complaint Stated Complaint: L FT TOE PX - History obtained from History obtained from: Patient - Additonal information Additional information: 73-year-old female presents from [facility] for left 3rd and 4th toe redness, Slight drainage,and concern for possible infection. Patient has been in a splint in that foot for a recent fracture about a month ago. She has follow- up on April 12 with the orthopedic surgeon for this fracture. She previously was ambulatory but has not been walking since injury due to to nonweightbearing status. She states she is not diabetic, she has not had a fever or chills, no nausea, no weakness, no other areas of rash. She states that the toes are not painful and they were only noted by a care provider at the facility. No known injury to the toes, but states that she previously had her nails trimmed by the botany technician and has not been able to do so due to her fracture and wonders if the nail may have rubbed on her toe. Review of Systems Constitutional: reports: Reviewed and negative Cardiac: reports: Reviewed and negative GI: reports: Reviewed and negative : reports: Reviewed and negative Skin: reports: Abrasion (s) Musculoskeletal: reports: Reviewed and negative Neurologic: reports: Reviewed and negative PD PAST MEDICAL HISTORY - Past Medical History Past Medical History: Yes - Present Medications Home Medications: Ambulatory Orders Medication Instructions Recorded Confirmed Metoprolol Tartrate 25 mg PO BID 06/23/14 02/17/23 Pravastatin Sodium 40 mg PO DAILY 11/14/15 02/17/23 Aspirin [Ocean Aspirin] 81 mg PO DAILY 12/21/22 02/17/23 Benazepril HCl 20 mg PO DAILY 12/21/22 02/17/23 cephALEXin [Keflex] 500 mg PO Q6H #28 04/04/23 - Allergies Allergies/Adverse Reactions: Allergies Allergy/AdvReac Type Severity Reaction Status Date / Time latex Allergy Unknown Unverified 04/04/23 15:33 Penicillins Allergy Unknown Verified 02/17/23 08:12 PD ED PE NORMAL - Vitals Vital signs reviewed: Yes - General General: Alert and oriented X 3, No acute distress, Well developed/nourished - HEENT HEENT: Atraumatic, Pharynx benign - Cardiac Cardiac: RRR, No murmur - Respiratory Respiratory: No respiratory distress, Clear bilaterally - Abdomen Abdomen: Normal bowel sounds, Soft - Derm Derm: Normal color, Warm and dry, Other (There is mild eczema on the tips of left third and fourth toes. The left third toe has some serious drainage. No purulent drainage, no streaking erythema, no other skin rashes) - Extremities Extremities: No deformity, No tenderness to palpate, Normal ROM s pain, No edema, No calf tenderness / cord - Neuro Neuro: Alert and oriented X 3 Eye Opening: Spontaneous Motor: Obeys Commands Verbal: Oriented GCS Score: 15 - Psych Psych: Normal mood, Normal affect Results - Vitals Vitals: Vital Signs - 24 hr 04/04/23 04/04/23 15:25 15:30 Temperature 36.6 C Heart Rate 65 91 Respiratory 16 16 Rate Blood Pressure 125/74 118/72 O2 Saturation 99 100 Oxygen O2 Source Room air - Rads (name of study) No standard instances Relevant Findings:: EMP independent interpretation of test PD Medical Decision Making - ED course Complexity details: reviewed results, re-evaluated patient, considered differential ED course: 73-year-old female presents with left third and fourth toe redness as described above. Is localized to the tips of the toes, there is no purulent drainage, no abscess. I did obtain a x-ray to evaluate for possible signs of osteo though suspicion was low and I do not see any secondary signs of osteo on exam. She does continue to have A fracture of the left fifth metatarsal. She is otherwise stable, nontoxic and I think appropriate for oral antibiotics for treatment of this mild cellulitis. I recommended that the wound be cleaned with gentle soap and water and an [id number] triple antibiotic can be applied, the patient will be discharged home on Keflex for 7 days. If the redness extends up the foot or patient develops any systemic symptoms such as fever chills nausea vomiting or other new concerns, she should return to the ER. She otherwise has follow-up with her orthopedic surgeon next week for Her known foot fracture. Departure - Departure Disposition: 01 Home, Self Care Clinical Impression: Cellulitis of toe of left foot Condition: Good Instructions: ED Infec Skin Cellulitis Prescriptions: cephALEXin [Keflex] 500 mg PO Q6H #28 Comments: You have cellulitis, a skin infection, of the toes. It does not appear to be spreading at this time so we will treat with oral antibiotics. Keep wound Clean with gentle soap and water and you can apply [id number] antibacterial ointment to the toes. Please monitor closely and if the redness spreads or patient develops a fever, or other new concerns, she should return to the ER.
[2023-04-04 16:05] VITALS: BP 118/72
--- OUTSIDE RECORDS SUMMARY | 2023-04-04 16:31 | EXTERNAL MEDICAL SUMMARY RPT | Continuity of Care Document ---
Author Name Unknown Address [address] [place] [address] Phone Organization [facility] Address [address] [place] [address] Phone Care Team Providers Care Application Packager Name Role Phone Crew, Nieves Unavailable Unavailable Medications date description facility 2023-03-13 00:00 Cephalexin [facility] 2023-03-13 00:00 Hydrocodone-Acetaminophen [facility] Problems date description facility 2023-03-13 00:00 Arthropathy [facility] 2023-03-13 00:00 Primary osteoarthritis of both hips [facility] 2023-03-13 00:00 Compression deformity of verteb ra [facility] 2023-03-13 00:00 Osteoarthritis of sacroiliac natalee int [facility] 2023-03-13 00:00 Urinary tract infection [facility] Procedures date description facility 2023-03-13 00:00 XR lumbar spine and sacrum, 3 v iews [facility] 2023-03-13 00:00 Unilateral x-ray of hip, two views, with x-ray of pelvis [facility] Results/Labs test date author facility value unit interpretation Result panel 1 (unknown) (no date) (unknown) (unknown) (no value) (units unknown) (unknown) (unknown) (no date) (unknown) (unknown) 03/13/23 (units unknown) (unknown) (unknown) (no date) (unknown) (unknown) [address] [place] [address] (un its unknown) (unknown) (unknown) (no date) (unknown) (unknown) Accession Numb er: [id number] (units unknown) (unknown) (unknown) (no date) (unknown) (unknown) Accession Numb er: [id number] (units unknown) (unknown) (unknown) (no date) (unknown) (unknown) Age/Sex: 73 / F Date of Service: (units unknown) (unknown) (unknown) (no date) (unknown) (unknown) [place] [address] (units unknown) (unknown) (unknown) (no date) (unknown) (unknown) Approved by: Alma Park M.D. on 03/13/2023 at 17:31 (units unknown) (unknown) (unknown) (no date) (unknown) (unknown) Approved by: Yves Larson M.D. on 03/13/2023 at 16:33 (units unknown) (unknown) (unknown) (no date) (unknown) (unknown) Bones: 5 [id number] vertebrae are present. There is mild levocurvature of (units unknown) (unknown) (unknown) (no date) (unknown) (unknown) Bones: No frac tures or dislocations. Pelvic ring appears intact. No (units unknown) (unknown) (unknown) (no date) (unknown) (unknown) COMPARISON: None. (u nits unknown) (unknown) (unknown) (no date) (unknown) (unknown) : 0 Acct:[id number] (units unknown) (unknown) (unknown) (no date) (unknown) (unknown) 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 (units unknown) (unknown) (unknown) (no date) (unknown) (unknown) Dictated by: Alma Park M.D. on 03/13/2023 at 17:28 (units unknown) (unknown) (unknown) (no date) (unknown) (unknown) Dictated by: Yves Larson M.D. on 03/13/2023 at 16:33 (units unknown) (unknown) (unknown) (no date) (unknown) (unknown) FINDINGS: (units unknown) (unknown) (unknown) (no date) (unknown) (unknown) IMPRESSION: Sirena mbar spine without acute osseous abnormalities. Age (units unknown) (unknown) (unknown) (no date) (unknown) (unknown) IMPRESSION: Mo derate bilateral hip osteoarthritis. (units unknown) (unknown) (unknown) (no date) (unknown) (unknown) INDICATIONS: radiculopathy vs hip arthritis (units unknown) (unknown) (unknown) (no date) (unknown) (unknown) [facility] (uni ts unknown) (unknown) (unknown) (no date) (unknown) (unknown) Loc: ED (units unknown) (unknown) (unknown) (no date) (unknown) (unknown) [id number] (units unknown) (unknown) (unknown) (no date) (unknown) (unknown) Moderate multi level spondylosis of the imaged spine involving the lower thoracic (units unknown) (unknown) (unknown) (no date) (unknown) (unknown) Ordering Provi edilberto: Nieves Rincon (units unknown) (unknown) (unknown) (no date) (unknown) (unknown) PROCEDURE: XR HIP W PEL IF DONE LT 2V (units unknown) (unknown) (unknown) (no date) (unknown) (unknown) PROCEDURE: XR LUMBAR SPINE 2-3V (units unknown) (unknown) (unknown) (no date) (unknown) (unknown) Patient: Miranda Allen MR#: (units unknown) (unknown) (unknown) (no date) (unknown) (unknown) Procedure: XR hip w pel if done LT 2V (units unknown) (unknown) (unknown) (no date) (unknown) (unknown) Procedure: XR lumbar spine 2-3V (units unknown) (unknown) (unknown) (no date) (unknown) (unknown) Signed (units unknown) (unknown) (unknown) (no date) (unknown) (unknown) Soft tissues: Overlying bowel gas pattern is normal. No suspicious soft tissue (units unknown) (unknown) (unknown) (no date) (unknown) (unknown) Soft tissues: The visualized bowel gas pattern is normal. No suspicious soft (units unknown) (unknown) (unknown) (no date) (unknown) (unknown) TECHNIQUE: 3 v iews of the lumbar spine were acquired. (units unknown) (unknown) (unknown) (no date) (unknown) (unknown) TECHNIQUE: AP pelvis with lateral view(s) of the left hip(s). (units unknown) (unknown) (unknown) (no date) (unknown) (unknown) XRay Report (units unknown) (unknown) (unknown) (no date) (unknown) (unknown) and the lumbar spine. Degenerative endplate changes, disc space loss, and (units unknown) (unknown) (unknown) (no date) (unknown) (unknown) bony lesions. Degenerative changes of the bilateral hips and bilateral (units unknown) (unknown) (unknown) (no date) (unknown) (unknown) calcifications. (uni ts unknown) (unknown) (unknown) (no date) (unknown) (unknown) deformity (units unknown) (unknown) (unknown) (no date) (unknown) (unknown) endplate osteo phyte formation. Mid and lower lumbar facet arthropathy. No (units unknown) (unknown) (unknown) (no date) (unknown) (unknown) fractures. (units unknown) (unknown) (unknown) (no date) (unknown) (unknown) indeterminate but (u nits unknown) (unknown) (unknown) (no date) (unknown) (unknown) joints. (units unknown) (unknown) (unknown) (no date) (unknown) (unknown) lesions. Moder ate bilateral hip arthritic change. Degenerative changes are (units unknown) (unknown) (unknown) (no date) (unknown) (unknown) likely chronic anterior compression deformity of T12. Moderate multilevel (units unknown) (unknown) (unknown) (no date) (unknown) (unknown) lower lumbar s pine. Age-indeterminate but likely chronic anterior compression (units unknown) (unknown) (unknown) (no date) (unknown) (unknown) lumbar (units unknown) (unknown) (unknown) (no date) (unknown) (unknown) of the T12 rc tebral body. Otherwise, no evidence suggest acute compression (units unknown) (unknown) (unknown) (no date) (unknown) (unknown) present (units unknown) (unknown) (unknown) (no date) (unknown) (unknown) prominent (units unknown) (unknown) (unknown) (no date) (unknown) (unknown) sacroiliac (units unknown) (unknown) (unknown) (no date) (unknown) (unknown) spine (units unknown) (unknown) (unknown) (no date) (unknown) (unknown) spondylosis. (units unknown) (unknown) (unknown) (no date) (unknown) (unknown) suspicious bony (uni ts unknown) (unknown) (unknown) (no date) (unknown) (unknown) suspicious (units unknown) (unknown) (unknown) (no date) (unknown) (unknown) the (units unknown) (unknown) (unknown) (no date) (unknown) (unknown) tissue (units unknown) (unknown) (unknown) (no date) (unknown) (unknown) within the low er lumbar spine. (units unknown) (unknown) Result panel 2 (unknown) (no date) (unknown) (unknown) 1-5 /HPF (units unknown) (unknown) (unknown) (no date) (unknown) (unknown) 30-100/HPF (units unknown) (unknown) (unknown) (no date) (unknown) (unknown) Moderate (10-30) (un its unknown) (unknown) (unknown) (no date) (unknown) (unknown) None Seen (units unknown) (unknown) (unknown) (no date) (unknown) (unknown) None Seen (units unknown) (unknown) (unknown) (no date) (unknown) (unknown) Specimen Cultured (u nits unknown) (unknown) Result panel 3 (unknown) (no date) (unknown) (unknown) (no value) (units unknown) (unknown) (unknown) (no date) (unknown) (unknown) *If you do not have a primary care provider please contact [phone] to (units unknown) (unknown) (unknown) (no date) (unknown) (unknown) *Please call a nd schedule follow up with your primary care provider in 2-3 days, (units unknown) (unknown) (unknown) (no date) (unknown) (unknown) *Please contin ue to take your regular medications as directed. (units unknown) (unknown) (unknown) (no date) (unknown) (unknown) *Return to the Emergency Department for worsening symptoms, inability to keep (units unknown) (unknown) (unknown) (no date) (unknown) (unknown) *What to do: (units unknown) (unknown) (unknown) (no date) (unknown) (unknown) *You have been diagnosed with (units unknown) (unknown) (unknown) (no date) (unknown) (unknown) [id number] (units unknown) (unknown) (unknown) (no date) (unknown) (unknown) 03/13/23 15:47 (unit s unknown) (unknown) (unknown) (no date) (unknown) (unknown) 03/13/23 15:58 (unit s unknown) (unknown) (unknown) (no date) (unknown) (unknown) 03/13/23 (units unknown) (unknown) (unknown) (no date) (unknown) (unknown) 1 tab PO BID P RN (Reason: pain) Qty: 14 0RF (units unknown) (unknown) (unknown) (no date) (unknown) (unknown) 15:34 (units unknown) (unknown) (unknown) (no date) (unknown) (unknown) 500 mg PO QID 7 Days Qty: 28 0RF (units unknown) (unknown) (unknown) (no date) (unknown) (unknown) Activity Restrictions/Additiona l Instructions: (units unknown) (unknown) (unknown) (no date) (unknown) (unknown) Age/Sex: 73 / F (uni ts unknown) (unknown) (unknown) (no date) (unknown) (unknown) Bedside Urine Bilirubin - Negative (units unknown) (unknown) (unknown) (no date) (unknown) (unknown) Bedside Urine Glucose Negative (units unknown) (unknown) (unknown) (no date) (unknown) (unknown) Bedside Urine Ketone - Negative (units unknown) (unknown) (unknown) (no date) (unknown) (unknown) Bedside Urine Leukocytes +++ 500 (units unknown) (unknown) (unknown) (no date) (unknown) (unknown) Bedside Urine Nitrite + Positive (units unknown) (unknown) (unknown) (no date) (unknown) (unknown) Bedside Urine Occult Blood +/ (units unknown) (unknown) (unknown) (no date) (unknown) (unknown) Bedside Urine Protein - Negative (units unknown) (unknown) (unknown) (no date) (unknown) (unknown) Bedside Urine Urobilinogen - Negative (units unknown) (unknown) (unknown) (no date) (unknown) (unknown) Bedside Urine pH 6.0 (units unknown) (unknown) (unknown) (no date) (unknown) (unknown) Blood Pressure 122/58 L 03/13/23 15:34 (units unknown) (unknown) (unknown) (no date) (unknown) (unknown) Blood Pressure 122/58 L (units unknown) (unknown) (unknown) (no date) (unknown) (unknown) CV: regular ra te and rhythm, warm extremities no increased lower extremity (units unknown) (unknown) (unknown) (no date) (unknown) (unknown) Chief Complaint: (un its unknown) (unknown) (unknown) (no date) (unknown) (unknown) Chief complain t: Extremity Problem,Nontraumatic (units unknown) (unknown) (unknown) (no date) (unknown) (unknown) Clinical Impression: (units unknown) (unknown) (unknown) (no date) (unknown) (unknown) Consultations: (unit s unknown) (unknown) (unknown) (no date) (unknown) (unknown) Course of care: (uni ts unknown) (unknown) (unknown) (no date) (unknown) (unknown) Course (units unknown) (unknown) (unknown) (no date) (unknown) (unknown) : 0 Acct:[id number] (units unknown) (unknown) (unknown) (no date) (unknown) (unknown) Date of Servic e: 03/13/23 (units unknown) (unknown) (unknown) (no date) (unknown) (unknown) Departure (units unknown) (unknown) (unknown) (no date) (unknown) (unknown) Discharge Plan (unit s unknown) (unknown) (unknown) (no date) (unknown) (unknown) Discontinued Medications (units unknown) (unknown) (unknown) (no date) (unknown) (unknown) Documented By: RO (u nits unknown) (unknown) (unknown) (no date) (unknown) (unknown) ED Orders (units unknown) (unknown) (unknown) (no date) (unknown) (unknown) ER Physician: Nieves Rincon (units unknown) (unknown) (unknown) (no date) (unknown) (unknown) Emergency Report (un its unknown) (unknown) (unknown) (no date) (unknown) (unknown) Esterase (units unknown) (unknown) (unknown) (no date) (unknown) (unknown) Exam Narrative: (uni ts unknown) (unknown) (unknown) (no date) (unknown) (unknown) Exam (units unknown) (unknown) (unknown) (no date) (unknown) (unknown) GI: abdomen so ft, nondistended, without CVA tenderness bilaterally. Left (units unknown) (unknown) (unknown) (no date) (unknown) (unknown) General (units unknown) (unknown) (unknown) (no date) (unknown) (unknown) General: Pleas ant, sitting upright, in no acute distress, well groomed, (units unknown) (unknown) (unknown) (no date) (unknown) (unknown) HEENT: symmetr ical facial expressions, moist mucous membranes, neck is supple (units unknown) (unknown) (unknown) (no date) (unknown) (unknown) HPI - Extremit y Problem (units unknown) (unknown) (unknown) (no date) (unknown) (unknown) HPI Narrative: (unit s unknown) (unknown) (unknown) (no date) (unknown) (unknown) History of Pre sent Illness (units unknown) (unknown) (unknown) (no date) (unknown) (unknown) Hydrocodone Bitart/Acetaminophen (Hydrocodone/Acet 5/325 Tablet) 1 tab PO NOW (units unknown) (unknown) (unknown) (no date) (unknown) (unknown) I consulted wi th the ED attending physician * as needed for higher level of (units unknown) (unknown) (unknown) (no date) (unknown) (unknown) I have indepen dently reviewed the patient's vital signs and nursing notes as (units unknown) (unknown) (unknown) (no date) (unknown) (unknown) Independent historia n: (units unknown) (unknown) (unknown) (no date) (unknown) (unknown) Initial Vital Signs (units unknown) (unknown) (unknown) (no date) (unknown) (unknown) Initial Vital Signs: (units unknown) (unknown) (unknown) (no date) (unknown) (unknown) [address] [address] (units unknown) (unknown) (unknown) (no date) (unknown) (unknown) Lab Data (units unknown) (unknown) (unknown) (no date) (unknown) (unknown) Labs: (units unknown) (unknown) (unknown) (no date) (unknown) (unknown) Last Admin: 16:00 Dose: 1 tab (units unknown) (unknown) (unknown) (no date) (unknown) (unknown) Last Admin: 16:02 Dose: 1 each (units unknown) (unknown) (unknown) (no date) (unknown) (unknown) Lidocaine (Lid ocaine Patch 1 Each Adh..Patch) 1 each TOP NOW ONE (units unknown) (unknown) (unknown) (no date) (unknown) (unknown) MDM - Extremit y (Nontraumatic) (units unknown) (unknown) (unknown) (no date) (unknown) (unknown) MDM Narrative (units unknown) (unknown) (unknown) (no date) (unknown) (unknown) MSK: moves all extremities, no weakness, normal tone, not ambulatory, left foot (units unknown) (unknown) (unknown) (no date) (unknown) (unknown) Medical decisi on making narrative: (units unknown) (unknown) (unknown) (no date) (unknown) (unknown) Medication Instructions Recorded (units unknown) (unknown) (unknown) (no date) (unknown) (unknown) Mode of arrival: EMS (units unknown) (unknown) (unknown) (no date) (unknown) (unknown) Multiple etiol ogies for patient's symptoms considered including, but not limited (units unknown) (unknown) (unknown) (no date) (unknown) (unknown) My interpretat ion of imaging: Left hip and pelvis, lumbar spine x-ray (units unknown) (unknown) (unknown) (no date) (unknown) (unknown) My interpretat ion of lab studies: I obtained a urine from patient bridgette Arteaga (units unknown) (unknown) (unknown) (no date) (unknown) (unknown) Narrative (units unknown) (unknown) (unknown) (no date) (unknown) (unknown) Neuro: clear s peech and normal cognition, A+O x3, GCS 15, no focal motor or (units unknown) (unknown) (unknown) (no date) (unknown) (unknown) New (units unknown) (unknown) (unknown) (no date) (unknown) (unknown) ONE (units unknown) (unknown) (unknown) (no date) (unknown) (unknown) Ordered cephal exin and hydrocodone for patient's pain (units unknown) (unknown) (unknown) (no date) (unknown) (unknown) Ordered: (units unknown) (unknown) (unknown) (no date) (unknown) (unknown) Orders (units unknown) (unknown) (unknown) (no date) (unknown) (unknown) Oxygen Deliver y Method Room Air 05/03/23 15:34 (units unknown) (unknown) (unknown) (no date) (unknown) (unknown) Oxygen Deliver y Method Room Air (units unknown) (unknown) (unknown) (no date) (unknown) (unknown) Patient Dispos ition: Home (units unknown) (unknown) (unknown) (no date) (unknown) (unknown) Patient History (uni ts unknown) (unknown) (unknown) (no date) (unknown) (unknown) Patient does n ot have history here in the emergency department to review. She (units unknown) (unknown) (unknown) (no date) (unknown) (unknown) Patient: Miranda Allen MR#: M (units unknown) (unknown) (unknown) (no date) (unknown) (unknown) Pertinent charlee rds include: (units unknown) (unknown) (unknown) (no date) (unknown) (unknown) Prescriptions: (unit s unknown) (unknown) (unknown) (no date) (unknown) (unknown) Previous Rx's (units unknown) (unknown) (unknown) (no date) (unknown) (unknown) Pulse Oximetry 97 03/13/23 15:34 (units unknown) (unknown) (unknown) (no date) (unknown) (unknown) Pulse Oximetry 97 (u nits unknown) (unknown) (unknown) (no date) (unknown) (unknown) Pulse Rate 60 03/13/23 15:34 (units unknown) (unknown) (unknown) (no date) (unknown) (unknown) Pulse Rate 60 (units unknown) (unknown) (unknown) (no date) (unknown) (unknown) Questions are addressed and there is agreement with the plan and for follow-up. (units unknown) (unknown) (unknown) (no date) (unknown) (unknown) ROS Unobtainab le: All systems reviewed + are unremarkable except as noted in HPI (units unknown) (unknown) (unknown) (no date) (unknown) (unknown) Related Data (units unknown) (unknown) (unknown) (no date) (unknown) (unknown) Respiratory Ra te 18 03/13/23 15:34 (units unknown) (unknown) (unknown) (no date) (unknown) (unknown) Respiratory Rate 18 (units unknown) (unknown) (unknown) (no date) (unknown) (unknown) Respiratory: n ormal work of breathing, without tachypnea or hypoxia. (units unknown) (unknown) (unknown) (no date) (unknown) (unknown) Review of Systems (u nits unknown) (unknown) (unknown) (no date) (unknown) (unknown) Reviewed vital s signs and nursing notes. (units unknown) (unknown) (unknown) (no date) (unknown) (unknown) Signed By: (units unknown) (unknown) (unknown) (no date) (unknown) (unknown) Skin: brisk ca pillary refill, without rash or wound (units unknown) (unknown) (unknown) (no date) (unknown) (unknown) Smoking Status : Never smoker (units unknown) (unknown) (unknown) (no date) (unknown) (unknown) Social History (units unknown) (unknown) (unknown) (no date) (unknown) (unknown) Social conside rations that may affect disposition: none (units unknown) (unknown) (unknown) (no date) (unknown) (unknown) Source: patien t and EMS (units unknown) (unknown) (unknown) (no date) (unknown) (unknown) Stand Alone Fo carlene: Patient Portal/API (units unknown) (unknown) (unknown) (no date) (unknown) (unknown) Stated complai nt: Left Hip Pain (units unknown) (unknown) (unknown) (no date) (unknown) (unknown) Stop: 03/13/23 15:48 (units unknown) (unknown) (unknown) (no date) (unknown) (unknown) Substance Use Type: does not use (units unknown) (unknown) (unknown) (no date) (unknown) (unknown) Temperature 98 .0 F 03/13/23 15:34 (units unknown) (unknown) (unknown) (no date) (unknown) (unknown) Temperature 98.0 F ( units unknown) (unknown) (unknown) (no date) (unknown) (unknown) This is a 73-y ear-old female who lives at an assisted living facility with a (units unknown) (unknown) (unknown) (no date) (unknown) (unknown) Time Seen by Mykel hemphill: 03/13/23 15:47 (units unknown) (unknown) (unknown) (no date) (unknown) (unknown) Urinary tract infection (units unknown) (unknown) (unknown) (no date) (unknown) (unknown) Urine Dip (units unknown) (unknown) (unknown) (no date) (unknown) (unknown) Urine Microscopic St at (units unknown) (unknown) (unknown) (no date) (unknown) (unknown) Urine Specific [place] 1.015 (units unknown) (unknown) (unknown) (no date) (unknown) (unknown) Vital Signs - 8 hr ( units unknown) (unknown) (unknown) (no date) (unknown) (unknown) Vital Signs (units unknown) (unknown) (unknown) (no date) (unknown) (unknown) Vital signs: (units unknown) (unknown) (unknown) (no date) (unknown) (unknown) XR hip w pel i f done LT 2V Stat (units unknown) (unknown) (unknown) (no date) (unknown) (unknown) XR lumbar spin e 2-3V Stat (units unknown) (unknown) (unknown) (no date) (unknown) (unknown) [ ] New medica tion prescriptions sent to your pharmacy: [ ] (units unknown) (unknown) (unknown) (no date) (unknown) (unknown) [ ] New medica tion written as a paper prescription (units unknown) (unknown) (unknown) (no date) (unknown) (unknown) [ ] No new med ications given (units unknown) (unknown) (unknown) (no date) (unknown) (unknown) a [facility] at her living facility. (units unknown) (unknown) (unknown) (no date) (unknown) (unknown) afebrile, obese (uni ts unknown) (unknown) (unknown) (no date) (unknown) (unknown) alcohol intake frequency: other (units unknown) (unknown) (unknown) (no date) (unknown) (unknown) and below (units unknown) (unknown) (unknown) (no date) (unknown) (unknown) and she has hi story of bilateral knee pain. She denies recent fall but states (units unknown) (unknown) (unknown) (no date) (unknown) (unknown) arthropathy, osteoarthritis, pyelonephritis (units unknown) (unknown) (unknown) (no date) (unknown) (unknown) at least for a n update. Let them know you were seen in the Emergency Department (units unknown) (unknown) (unknown) (no date) (unknown) (unknown) bilateral lowe r extremities. Her left foot is in a Orthoglass splint and she (units unknown) (unknown) (unknown) (no date) (unknown) (unknown) care considera tions and they were available for discussion and recommendations (units unknown) (unknown) (unknown) (no date) (unknown) (unknown) cephalexin 500 mg capsule 500 mg PO QID 7 days #28 caps 03/13/23 (units unknown) (unknown) (unknown) (no date) (unknown) (unknown) cephalexin 500 mg capsule (units unknown) (unknown) (unknown) (no date) (unknown) (unknown) denies any brittany k pain, states that she is had a difficult time getting around due (units unknown) (unknown) (unknown) (no date) (unknown) (unknown) denies recent fever chills, states that she uses a PURE wick to void and bought (units unknown) (unknown) (unknown) (no date) (unknown) (unknown) department wor sening left-sided inguinal, hip and anterior thigh pain. She (units unknown) (unknown) (unknown) (no date) (unknown) (unknown) edema, bilater al lower extremities are similar in nature (units unknown) (unknown) (unknown) (no date) (unknown) (unknown) establish care with one of the [facility] primary care providers. (units unknown) (unknown) (unknown) (no date) (unknown) (unknown) extremities wi th equal strength. (units unknown) (unknown) (unknown) (no date) (unknown) (unknown) extremities, d enies weakness or sensation changes but states that she is just (units unknown) (unknown) (unknown) (no date) (unknown) (unknown) for the above problem. We will electronically transmit a record of today's note (units unknown) (unknown) (unknown) (no date) (unknown) (unknown) had this anter ior left leg pain. States that both of her knees need replaced (units unknown) (unknown) (unknown) (no date) (unknown) (unknown) has follow-up scheduled. She denies any increased swelling to her lower (units unknown) (unknown) (unknown) (no date) (unknown) (unknown) hydrocodone 5 mg-acetaminophen 325 1 tab PO BID PRN pain #14 tabs 03/13/23 (units unknown) (unknown) (unknown) (no date) (unknown) (unknown) hydrocodone-ac etaminop hen 5-325 mg tablet (units unknown) (unknown) (unknown) (no date) (unknown) (unknown) if your PCP or specialist is in our system. (units unknown) (unknown) (unknown) (no date) (unknown) (unknown) in plantar spl int, brisk cap refill to toes, no erythema or unilateral edema, no (units unknown) (unknown) (unknown) (no date) (unknown) (unknown) inguinal tende rness to palpation (units unknown) (unknown) (unknown) (no date) (unknown) (unknown) left fractured foot from an injury a couple of weeks ago who presents emergency (units unknown) (unknown) (unknown) (no date) (unknown) (unknown) liquids down, fever greater than 101F, chills, or other concerning symptom. (units unknown) (unknown) (unknown) (no date) (unknown) (unknown) mg tablet (units unknown) (unknown) (unknown) (no date) (unknown) (unknown) midline spinal tenderness to palpation, full range of motion to bilateral lower (units unknown) (unknown) (unknown) (no date) (unknown) (unknown) outpatient managemel walters (units unknown) (unknown) (unknown) (no date) (unknown) (unknown) regarding plan of care and diagnostic testing. Patient is appropriate for (units unknown) (unknown) (unknown) (no date) (unknown) (unknown) sensation deficits ( units unknown) (unknown) (unknown) (no date) (unknown) (unknown) that she is solorio d multiple falls this year with her most recent fall in February. (units unknown) (unknown) (unknown) (no date) (unknown) (unknown) to this. She h as not walked in quite some time, has notable foot drop to (units unknown) (unknown) (unknown) (no date) (unknown) (unknown) to: Urinary tr act infection, lumbar radiculopathy, degenerative joint disease, (units unknown) (unknown) (unknown) (no date) (unknown) (unknown) well as prior records if available. (units unknown) (unknown) (unknown) (no date) (unknown) (unknown) which is posit bianca for leukocytes 3+, sent for urine microscopy (units unknown) (unknown) Result panel 4 (unknown) (no date) (unknown) (unknown) (no value) (units unknown) (unknown) (unknown) (no date) (unknown) (unknown) *If you do not have a primary care provider please contact [phone] to (units unknown) (unknown) (unknown) (no date) (unknown) (unknown) *Please call a nd schedule follow up with your primary care provider in 2-3 days, (units unknown) (unknown) (unknown) (no date) (unknown) (unknown) *Please contin ue to take your regular medications as directed. (units unknown) (unknown) (unknown) (no date) (unknown) (unknown) *Return to the Emergency Department for worsening symptoms, inability to keep (units unknown) (unknown) (unknown) (no date) (unknown) (unknown) *What to do: (units unknown) (unknown) (unknown) (no date) (unknown) (unknown) *You have been diagnosed with a urinary tract infection, bilateral hip (units unknown) (unknown) (unknown) (no date) (unknown) (unknown) [id number] (units unknown) (unknown) (unknown) (no date) (unknown) (unknown) 03/13/23 15:47 (unit s unknown) (unknown) (unknown) (no date) (unknown) (unknown) 03/13/23 15:56 (unit s unknown) (unknown) (unknown) (no date) (unknown) (unknown) 03/13/23 15:58 (unit s unknown) (unknown) (unknown) (no date) (unknown) (unknown) 03/13/23 Range/Units (units unknown) (unknown) (unknown) (no date) (unknown) (unknown) 03/13/23 (units unknown) (unknown) (unknown) (no date) (unknown) (unknown) 1 tab PO BID P RN (Reason: pain) Qty: 14 0RF (units unknown) (unknown) (unknown) (no date) (unknown) (unknown) 15:34 (units unknown) (unknown) (unknown) (no date) (unknown) (unknown) 15:56 (units unknown) (unknown) (unknown) (no date) (unknown) (unknown) 500 mg PO QID 7 Days Qty: 28 0RF (units unknown) (unknown) (unknown) (no date) (unknown) (unknown) Activity Restrictions/Additiona l Instructions: (units unknown) (unknown) (unknown) (no date) (unknown) (unknown) Age/Sex: 73 / F (uni ts unknown) (unknown) (unknown) (no date) (unknown) (unknown) Bedside Urine Bilirubin - Negative (units unknown) (unknown) (unknown) (no date) (unknown) (unknown) Bedside Urine Glucose Negative (units unknown) (unknown) (unknown) (no date) (unknown) (unknown) Bedside Urine Ketone - Negative (units unknown) (unknown) (unknown) (no date) (unknown) (unknown) Bedside Urine Leukocytes +++ 500 (units unknown) (unknown) (unknown) (no date) (unknown) (unknown) Bedside Urine Nitrite + Positive (units unknown) (unknown) (unknown) (no date) (unknown) (unknown) Bedside Urine Occult Blood +/ (units unknown) (unknown) (unknown) (no date) (unknown) (unknown) Bedside Urine Protein - Negative (units unknown) (unknown) (unknown) (no date) (unknown) (unknown) Bedside Urine Urobilinogen - Negative (units unknown) (unknown) (unknown) (no date) (unknown) (unknown) Bedside Urine pH 6.0 (units unknown) (unknown) (unknown) (no date) (unknown) (unknown) Bilateral prim [place] osteoarthritis of hip (units unknown) (unknown) (unknown) (no date) (unknown) (unknown) Blood Pressure 122/58 L 03/13/23 15:34 (units unknown) (unknown) (unknown) (no date) (unknown) (unknown) Blood Pressure 122/58 L (units unknown) (unknown) (unknown) (no date) (unknown) (unknown) CV: regular ra te and rhythm, warm extremities no increased lower extremity (units unknown) (unknown) (unknown) (no date) (unknown) (unknown) Chief Complain t: Left hip and anterior thigh pain (units unknown) (unknown) (unknown) (no date) (unknown) (unknown) Chief complain t: Extremity Problem,Nontraumatic (units unknown) (unknown) (unknown) (no date) (unknown) (unknown) Clinical Impression: (units unknown) (unknown) (unknown) (no date) (unknown) (unknown) Course of care : Patient's urine dip is positive for leukocytes, your microscopy (units unknown) (unknown) (unknown) (no date) (unknown) (unknown) Course (units unknown) (unknown) (unknown) (no date) (unknown) (unknown) : 0 Acct:[id number] (units unknown) (unknown) (unknown) (no date) (unknown) (unknown) Date of Servic e: 03/13/23 (units unknown) (unknown) (unknown) (no date) (unknown) (unknown) Departure (units unknown) (unknown) (unknown) (no date) (unknown) (unknown) Discharge Plan (unit s unknown) (unknown) (unknown) (no date) (unknown) (unknown) Discontinued Medications (units unknown) (unknown) (unknown) (no date) (unknown) (unknown) Documented By: RO (u nits unknown) (unknown) (unknown) (no date) (unknown) (unknown) ED Orders (units unknown) (unknown) (unknown) (no date) (unknown) (unknown) ER Physician: Nieves Rincon (units unknown) (unknown) (unknown) (no date) (unknown) (unknown) Emergency Report (un its unknown) (unknown) (unknown) (no date) (unknown) (unknown) Esterase (units unknown) (unknown) (unknown) (no date) (unknown) (unknown) Exam Narrative: (uni ts unknown) (unknown) (unknown) (no date) (unknown) (unknown) Exam (units unknown) (unknown) (unknown) (no date) (unknown) (unknown) GI: abdomen so ft, nondistended, without CVA tenderness bilaterally. Left (units unknown) (unknown) (unknown) (no date) (unknown) (unknown) General (units unknown) (unknown) (unknown) (no date) (unknown) (unknown) General: Pleas ant, sitting upright, in no acute distress, well groomed, (units unknown) (unknown) (unknown) (no date) (unknown) (unknown) HEENT: symmetr ical facial expressions, moist mucous membranes, neck is supple (units unknown) (unknown) (unknown) (no date) (unknown) (unknown) HPI - Extremit y Problem (units unknown) (unknown) (unknown) (no date) (unknown) (unknown) HPI Narrative: (unit s unknown) (unknown) (unknown) (no date) (unknown) (unknown) History of Pre sent Illness (units unknown) (unknown) (unknown) (no date) (unknown) (unknown) Hydrocodone Bitart/Acetaminophen (Hydrocodone/Acet 5/325 Tablet) 1 tab PO NOW (units unknown) (unknown) (unknown) (no date) (unknown) (unknown) I am sorry for your symptoms, I hope your pain starts to get better, (units unknown) (unknown) (unknown) (no date) (unknown) (unknown) I consulted [facility] the ED attending physician Dr. Rincon as needed for higher (units unknown) (unknown) (unknown) (no date) (unknown) (unknown) I have indepen dently reviewed the patient's vital signs and nursing notes as (units unknown) (unknown) (unknown) (no date) (unknown) (unknown) Independent wi storian: Patient (units unknown) (unknown) (unknown) (no date) (unknown) (unknown) Initial Vital Signs (units unknown) (unknown) (unknown) (no date) (unknown) (unknown) Initial Vital Signs: (units unknown) (unknown) (unknown) (no date) (unknown) (unknown) Instructions: Osteoarthritis, DI for Urinary Tract Infection (UTI) (units unknown) (unknown) (unknown) (no date) (unknown) (unknown) [address] [address] (units unknown) (unknown) (unknown) (no date) (unknown) (unknown) Lab Data (units unknown) (unknown) (unknown) (no date) (unknown) (unknown) Lab Results (units unknown) (unknown) (unknown) (no date) (unknown) (unknown) Labs: (units unknown) (unknown) (unknown) (no date) (unknown) (unknown) Last Admin: 16:00 Dose: 1 tab (units unknown) (unknown) (unknown) (no date) (unknown) (unknown) Last Admin: 16:02 Dose: 1 each (units unknown) (unknown) (unknown) (no date) (unknown) (unknown) Lidocaine (Lid ocaine Patch 1 Each Adh..Patch) 1 each TOP NOW ONE (units unknown) (unknown) (unknown) (no date) (unknown) (unknown) MDM - Extremit y (Nontraumatic) (units unknown) (unknown) (unknown) (no date) (unknown) (unknown) MDM Narrative (units unknown) (unknown) (unknown) (no date) (unknown) (unknown) MSK: moves all extremities, no weakness, normal tone, not ambulatory, left foot (units unknown) (unknown) (unknown) (no date) (unknown) (unknown) Medical decisi on making narrative: (units unknown) (unknown) (unknown) (no date) (unknown) (unknown) Medication Instructions Recorded (units unknown) (unknown) (unknown) (no date) (unknown) (unknown) Mode of arrival: EMS (units unknown) (unknown) (unknown) (no date) (unknown) (unknown) Multiple etiol ogies for patient's symptoms considered including, but not limited (units unknown) (unknown) (unknown) (no date) (unknown) (unknown) My interpretat ion of imaging: Left hip and pelvis is significant only for (units unknown) (unknown) (unknown) (no date) (unknown) (unknown) My interpretat ion of lab studies: I obtained a urine from patient has PureWick (units unknown) (unknown) (unknown) (no date) (unknown) (unknown) Narrative (units unknown) (unknown) (unknown) (no date) (unknown) (unknown) Neuro: clear s peech and normal cognition, A+O x3, GCS 15, no focal motor or (units unknown) (unknown) (unknown) (no date) (unknown) (unknown) New (units unknown) (unknown) (unknown) (no date) (unknown) (unknown) ONE (units unknown) (unknown) (unknown) (no date) (unknown) (unknown) Ordered cephal exin and hydrocodone for patient's pain (units unknown) (unknown) (unknown) (no date) (unknown) (unknown) Ordered: (units unknown) (unknown) (unknown) (no date) (unknown) (unknown) Orders (units unknown) (unknown) (unknown) (no date) (unknown) (unknown) Oxygen Deliver y Method Room Air 03/13/23 15:34 (units unknown) (unknown) (unknown) (no date) (unknown) (unknown) Oxygen Deliver y Method Room Air (units unknown) (unknown) (unknown) (no date) (unknown) (unknown) Patient Dispos ition: Home (units unknown) (unknown) (unknown) (no date) (unknown) (unknown) Patient History (uni ts unknown) (unknown) (unknown) (no date) (unknown) (unknown) Patient does n ot have history here in the emergency department to review. She (units unknown) (unknown) (unknown) (no date) (unknown) (unknown) Patient: Miranda Allen MR#: [id number] (units unknown) (unknown) (unknown) (no date) (unknown) (unknown) Pertinent charlee rds include: No prior records available for review (units unknown) (unknown) (unknown) (no date) (unknown) (unknown) Prescriptions: (unit s unknown) (unknown) (unknown) (no date) (unknown) (unknown) Previous Rx's (units unknown) (unknown) (unknown) (no date) (unknown) (unknown) Pulse Oximetry 97 03/13/23 15:34 (units unknown) (unknown) (unknown) (no date) (unknown) (unknown) Pulse Oximetry 97 (u nits unknown) (unknown) (unknown) (no date) (unknown) (unknown) Pulse Rate 60 03/13/23 15:34 (units unknown) (unknown) (unknown) (no date) (unknown) (unknown) Pulse Rate 60 (units unknown) (unknown) (unknown) (no date) (unknown) (unknown) Qualifiers: (units unknown) (unknown) (unknown) (no date) (unknown) (unknown) Questions are addressed and there is agreement with the plan and for follow-up. (units unknown) (unknown) (unknown) (no date) (unknown) (unknown) ROS Unobtainab le: All systems reviewed + are unremarkable except as noted in HPI (units unknown) (unknown) (unknown) (no date) (unknown) (unknown) Related Data (units unknown) (unknown) (unknown) (no date) (unknown) (unknown) Respiratory Ra te 18 03/13/23 15:34 (units unknown) (unknown) (unknown) (no date) (unknown) (unknown) Respiratory Rate 18 (units unknown) (unknown) (unknown) (no date) (unknown) (unknown) Respiratory: n ormal work of breathing, without tachypnea or hypoxia. (units unknown) (unknown) (unknown) (no date) (unknown) (unknown) Review of Systems (u nits unknown) (unknown) (unknown) (no date) (unknown) (unknown) Reviewed vital s signs and nursing notes. (units unknown) (unknown) (unknown) (no date) (unknown) (unknown) Signed By: (units unknown) (unknown) (unknown) (no date) (unknown) (unknown) Skin: brisk ca pillary refill, without rash or wound (units unknown) (unknown) (unknown) (no date) (unknown) (unknown) Smoking Status : Never smoker (units unknown) (unknown) (unknown) (no date) (unknown) (unknown) Social History (units unknown) (unknown) (unknown) (no date) (unknown) (unknown) Social conside rations that may affect disposition: none (units unknown) (unknown) (unknown) (no date) (unknown) (unknown) Source: patien t and EMS (units unknown) (unknown) (unknown) (no date) (unknown) (unknown) Stand Alone Fo carlene: Patient Portal/API (units unknown) (unknown) (unknown) (no date) (unknown) (unknown) Stated complai nt: Left Hip Pain (units unknown) (unknown) (unknown) (no date) (unknown) (unknown) Stop: 03/13/23 15:48 (units unknown) (unknown) (unknown) (no date) (unknown) (unknown) Substance Use Type: does not use (units unknown) (unknown) (unknown) (no date) (unknown) (unknown) Temperature 98 .0 F 03/13/23 15:34 (units unknown) (unknown) (unknown) (no date) (unknown) (unknown) Temperature 98.0 F ( units unknown) (unknown) (unknown) (no date) (unknown) (unknown) This is a 73-y ear-old female who lives at an assisted living facility with a (units unknown) (unknown) (unknown) (no date) (unknown) (unknown) Time Seen by Mykel hemphill: 03/13/23 15:47 (units unknown) (unknown) (unknown) (no date) (unknown) (unknown) Ur Culture Ind icated? Specimen cultured (units unknown) (unknown) (unknown) (no date) (unknown) (unknown) Ur Squamous Ep ith Cells 1-5 /hpf (0-5/HPF) (units unknown) (unknown) (unknown) (no date) (unknown) (unknown) Urinary tract infection type: site unspecified Hematuria presence: without (units unknown) (unknown) (unknown) (no date) (unknown) (unknown) Urinary tract infection (units unknown) (unknown) (unknown) (no date) (unknown) (unknown) Urine Bacteria Moderate (10-30) H (None) (units unknown) (unknown) (unknown) (no date) (unknown) (unknown) Urine Culture Stat ( units unknown) (unknown) (unknown) (no date) (unknown) (unknown) Urine Dip (units unknown) (unknown) (unknown) (no date) (unknown) (unknown) Urine Microscopic St at (units unknown) (unknown) (unknown) (no date) (unknown) (unknown) Urine RBC None seen (0-5/HPF) (units unknown) (unknown) (unknown) (no date) (unknown) (unknown) Urine Specific [place] 1.015 (units unknown) (unknown) (unknown) (no date) (unknown) (unknown) Urine WBC 30-1 00/hpf H (0-5/HPF) (units unknown) (unknown) (unknown) (no date) (unknown) (unknown) Vital Signs - 8 hr ( units unknown) (unknown) (unknown) (no date) (unknown) (unknown) Vital Signs (units unknown) (unknown) (unknown) (no date) (unknown) (unknown) Vital signs: (units unknown) (unknown) (unknown) (no date) (unknown) (unknown) XR hip w pel i f done LT 2V Stat (units unknown) (unknown) (unknown) (no date) (unknown) (unknown) XR lumbar spin e 2-3V Stat (units unknown) (unknown) (unknown) (no date) (unknown) (unknown) [ ] New medica tion prescriptions sent to your pharmacy: [ ] (units unknown) (unknown) (unknown) (no date) (unknown) (unknown) [ ] No new med ications given (units unknown) (unknown) (unknown) (no date) (unknown) (unknown) [ x] New medic ation written as a paper prescription (units unknown) (unknown) (unknown) (no date) (unknown) (unknown) a [employer] s tem at her living facility. (units unknown) (unknown) (unknown) (no date) (unknown) (unknown) afebrile, obese (uni ts unknown) (unknown) (unknown) (no date) (unknown) (unknown) alcohol intake frequency: other (units unknown) (unknown) (unknown) (no date) (unknown) (unknown) and below (units unknown) (unknown) (unknown) (no date) (unknown) (unknown) and she has hi story of bilateral knee pain. She denies recent fall but states (units unknown) (unknown) (unknown) (no date) (unknown) (unknown) appropriate fo r outpatient management. (units unknown) (unknown) (unknown) (no date) (unknown) (unknown) arthropathy, osteoarthritis, pyelonephritis (units unknown) (unknown) (unknown) (no date) (unknown) (unknown) at least for a n update. Let them know you were seen in the Emergency Department (units unknown) (unknown) (unknown) (no date) (unknown) (unknown) bacteria urine is pending for culture, patient without flank tenderness treat (units unknown) (unknown) (unknown) (no date) (unknown) (unknown) bilateral lowe r extremities. Her left foot is in a Orthoglass splint and she (units unknown) (unknown) (unknown) (no date) (unknown) (unknown) cephalexin 500 mg capsule 500 mg PO QID 7 days #28 caps 03/13/23 (units unknown) (unknown) (unknown) (no date) (unknown) (unknown) cephalexin 500 mg capsule (units unknown) (unknown) (unknown) (no date) (unknown) (unknown) denies any brittany k pain, states that she is had a difficult time getting around due (units unknown) (unknown) (unknown) (no date) (unknown) (unknown) denies recent fever chills, states that she uses a PURE wick to void and bought (units unknown) (unknown) (unknown) (no date) (unknown) (unknown) department wor sening left-sided inguinal, hip and anterior thigh pain. She (units unknown) (unknown) (unknown) (no date) (unknown) (unknown) edema, bilater al lower extremities are similar in nature (units unknown) (unknown) (unknown) (no date) (unknown) (unknown) establish care with one of the [facility] primary care providers. (units unknown) (unknown) (unknown) (no date) (unknown) (unknown) extremities wi th equal strength. (units unknown) (unknown) (unknown) (no date) (unknown) (unknown) extremities, d enies weakness or sensation changes but states that she is just (units unknown) (unknown) (unknown) (no date) (unknown) (unknown) for the above problem. We will electronically transmit a record of today's note (units unknown) (unknown) (unknown) (no date) (unknown) (unknown) had this anter ior left leg pain. States that both of her knees need replaced (units unknown) (unknown) (unknown) (no date) (unknown) (unknown) has follow-up scheduled. She denies any increased swelling to her lower (units unknown) (unknown) (unknown) (no date) (unknown) (unknown) hematuria Qual ified Code(s): N39.0 - Urinary tract infection, site not specified (units unknown) (unknown) (unknown) (no date) (unknown) (unknown) hydrocodone 5 mg-acetaminophen 325 1 tab PO BID PRN pain #14 tabs 03/13/23 (units unknown) (unknown) (unknown) (no date) (unknown) (unknown) hydrocodone-ac etaminop hen 5-325 mg tablet (units unknown) (unknown) (unknown) (no date) (unknown) (unknown) if your PCP or specialist is in our system. (units unknown) (unknown) (unknown) (no date) (unknown) (unknown) in plantar spl int, brisk cap refill to toes, no erythema or unilateral edema, no (units unknown) (unknown) (unknown) (no date) (unknown) (unknown) inguinal tende rness to palpation (units unknown) (unknown) (unknown) (no date) (unknown) (unknown) left fractured foot from an injury a couple of weeks ago who presents emergency (units unknown) (unknown) (unknown) (no date) (unknown) (unknown) level of care considerations and they were available for discussion and (units unknown) (unknown) (unknown) (no date) (unknown) (unknown) liquids down, fever greater than 101F, chills, or other concerning symptom. (units unknown) (unknown) (unknown) (no date) (unknown) (unknown) mg tablet (units unknown) (unknown) (unknown) (no date) (unknown) (unknown) midline spinal tenderness to palpation, full range of motion to bilateral lower (units unknown) (unknown) (unknown) (no date) (unknown) (unknown) osteoarthritis and likely sciatica anterior of your left leg from her low back. (units unknown) (unknown) (unknown) (no date) (unknown) (unknown) osteoarthritis , lumbar spine x-ray (units unknown) (unknown) (unknown) (no date) (unknown) (unknown) q.i.d., no naina or urine cultures available for review, patient is p.o. tolerant, (units unknown) (unknown) (unknown) (no date) (unknown) (unknown) recommendation s regarding plan of care and diagnostic testing. Patient is (units unknown) (unknown) (unknown) (no date) (unknown) (unknown) sensation deficits ( units unknown) (unknown) (unknown) (no date) (unknown) (unknown) that she is solorio d multiple falls this year with her most recent fall in February. (units unknown) (unknown) (unknown) (no date) (unknown) (unknown) to this. She h as not walked in quite some time, has notable foot drop to (units unknown) (unknown) (unknown) (no date) (unknown) (unknown) to: Urinary tr act infection, lumbar radiculopathy, degenerative joint disease, (units unknown) (unknown) (unknown) (no date) (unknown) (unknown) well as prior records if available. (units unknown) (unknown) (unknown) (no date) (unknown) (unknown) which is posit bianca for leukocytes 3+, sent for urine microscopy (units unknown) (unknown) (unknown) (no date) (unknown) (unknown) without nausea , vomiting diarrhea, afebrile, nontoxic appearing. (units unknown) (unknown) Result panel 5 (unknown) (no date) (unknown) (unknown) (no value) (units unknown) (unknown) (unknown) (no date) (unknown) (unknown) *If you do not have a primary care provider please contact [phone] to (units unknown) (unknown) (unknown) (no date) (unknown) (unknown) *Please call a nd schedule follow up with your primary care provider in 2-3 days, (units unknown) (unknown) (unknown) (no date) (unknown) (unknown) *Please contin ue to take your regular medications as directed. (units unknown) (unknown) (unknown) (no date) (unknown) (unknown) *Return to the Emergency Department for worsening symptoms, inability to keep (units unknown) (unknown) (unknown) (no date) (unknown) (unknown) *What to do: (units unknown) (unknown) (unknown) (no date) (unknown) (unknown) *You have been diagnosed with a urinary tract infection, bilateral hip (units unknown) (unknown) (unknown) (no date) (unknown) (unknown) [id number] (units unknown) (unknown) (unknown) (no date) (unknown) (unknown) 03/13/23 15:47 (unit s unknown) (unknown) (unknown) (no date) (unknown) (unknown) 03/13/23 15:56 (unit s unknown) (unknown) (unknown) (no date) (unknown) (unknown) 03/13/23 15:58 (unit s unknown) (unknown) (unknown) (no date) (unknown) (unknown) 03/13/23 Range/Units (units unknown) (unknown) (unknown) (no date) (unknown) (unknown) 03/13/23 (units unknown) (unknown) (unknown) (no date) (unknown) (unknown) 1 tab PO BID P RN (Reason: pain) Qty: 14 0RF (units unknown) (unknown) (unknown) (no date) (unknown) (unknown) 15:34 (units unknown) (unknown) (unknown) (no date) (unknown) (unknown) 15:56 (units unknown) (unknown) (unknown) (no date) (unknown) (unknown) 500 mg PO QID 7 Days Qty: 28 0RF (units unknown) (unknown) (unknown) (no date) (unknown) (unknown) ? (units unknown) (unknown) (unknown) (no date) (unknown) (unknown) Activity Restrictions/Additiona l Instructions: (units unknown) (unknown) (unknown) (no date) (unknown) (unknown) Age/Sex: 73 / F (uni ts unknown) (unknown) (unknown) (no date) (unknown) (unknown) Approved by: [place] M.D. on 03/13/2023 at 17:31 ? (units unknown) (unknown) (unknown) (no date) (unknown) (unknown) Approved by: Yves Larson M.D. on 03/13/2023 at 16:33 ? (units unknown) (unknown) (unknown) (no date) (unknown) (unknown) Bedside Urine Bilirubin - Negative (units unknown) (unknown) (unknown) (no date) (unknown) (unknown) Bedside Urine Glucose Negative (units unknown) (unknown) (unknown) (no date) (unknown) (unknown) Bedside Urine Ketone - Negative (units unknown) (unknown) (unknown) (no date) (unknown) (unknown) Bedside Urine Leukocytes +++ 500 (units unknown) (unknown) (unknown) (no date) (unknown) (unknown) Bedside Urine Nitrite + Positive (units unknown) (unknown) (unknown) (no date) (unknown) (unknown) Bedside Urine Occult Blood +/ (units unknown) (unknown) (unknown) (no date) (unknown) (unknown) Bedside Urine Protein - Negative (units unknown) (unknown) (unknown) (no date) (unknown) (unknown) Bedside Urine Urobilinogen - Negative (units unknown) (unknown) (unknown) (no date) (unknown) (unknown) Bedside Urine pH 6.0 (units unknown) (unknown) (unknown) (no date) (unknown) (unknown) Bilateral prim laurel osteoarthritis of hip (units unknown) (unknown) (unknown) (no date) (unknown) (unknown) Blood Pressure 122/58 L 03/13/23 15:34 (units unknown) (unknown) (unknown) (no date) (unknown) (unknown) Blood Pressure 122/58 L (units unknown) (unknown) (unknown) (no date) (unknown) (unknown) Bones:? 5 zhr-anv-fqebxte vertebrae are present.? There is mild levocurvature of (units unknown) (unknown) (unknown) (no date) (unknown) (unknown) Bones:? No fra ctures or dislocations.? Pelvic ring appears intact.? No (units unknown) (unknown) (unknown) (no date) (unknown) (unknown) COMPARISON:? None. ( units unknown) (unknown) (unknown) (no date) (unknown) (unknown) CV: regular ra te and rhythm, warm extremities no increased lower extremity (units unknown) (unknown) (unknown) (no date) (unknown) (unknown) Chief Complain t: Left hip and anterior thigh pain (units unknown) (unknown) (unknown) (no date) (unknown) (unknown) Chief complain t: Extremity Problem,Nontraumatic (units unknown) (unknown) (unknown) (no date) (unknown) (unknown) Clinical Impression: (units unknown) (unknown) (unknown) (no date) (unknown) (unknown) Course of care : Patient's urine dip is positive for leukocytes, your microscopy (units unknown) (unknown) (unknown) (no date) (unknown) (unknown) Course (units unknown) (unknown) (unknown) (no date) (unknown) (unknown) : 0 Acct:[id number] (units unknown) (unknown) (unknown) (no date) (unknown) (unknown) Date of Servic e: 03/13/23 (units unknown) (unknown) (unknown) (no date) (unknown) (unknown) 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 (units unknown) (unknown) (unknown) (no date) (unknown) (unknown) Departure (units unknown) (unknown) (unknown) (no date) (unknown) (unknown) Dictated by: [place] M.D. on 03/13/2023 at 17:28 ? ? (units unknown) (unknown) (unknown) (no date) (unknown) (unknown) Dictated by: Yves Larson M.D. on 03/13/2023 at 16:33 ? ? (units unknown) (unknown) (unknown) (no date) (unknown) (unknown) Discharge Plan (unit s unknown) (unknown) (unknown) (no date) (unknown) (unknown) Discontinued Medications (units unknown) (unknown) (unknown) (no date) (unknown) (unknown) Documented By: RO (u nits unknown) (unknown) (unknown) (no date) (unknown) (unknown) ED Orders (units unknown) (unknown) (unknown) (no date) (unknown) (unknown) ER Physician: Nieves Rincon (units unknown) (unknown) (unknown) (no date) (unknown) (unknown) Emergency Report (un its unknown) (unknown) (unknown) (no date) (unknown) (unknown) Esterase (units unknown) (unknown) (unknown) (no date) (unknown) (unknown) Exam Narrative: (uni ts unknown) (unknown) (unknown) (no date) (unknown) (unknown) Exam (units unknown) (unknown) (unknown) (no date) (unknown) (unknown) Extremity x-ray #2: (units unknown) (unknown) (unknown) (no date) (unknown) (unknown) FINDINGS:? (units unknown) (unknown) (unknown) (no date) (unknown) (unknown) GI: abdomen so ft, nondistended, without CVA tenderness bilaterally. Left (units unknown) (unknown) (unknown) (no date) (unknown) (unknown) General (units unknown) (unknown) (unknown) (no date) (unknown) (unknown) General: Pleas ant, sitting upright, in no acute distress, well groomed, (units unknown) (unknown) (unknown) (no date) (unknown) (unknown) HEENT: symmetr ical facial expressions, moist mucous membranes, neck is supple (units unknown) (unknown) (unknown) (no date) (unknown) (unknown) HPI - Extremit y Problem (units unknown) (unknown) (unknown) (no date) (unknown) (unknown) HPI Narrative: (unit s unknown) (unknown) (unknown) (no date) (unknown) (unknown) History of Pre sent Illness (units unknown) (unknown) (unknown) (no date) (unknown) (unknown) Hydrocodone Bitart/Acetaminophen (Hydrocodone/Acet 5/325 Tablet) 1 tab PO NOW (units unknown) (unknown) (unknown) (no date) (unknown) (unknown) I am sorry for your symptoms, I hope your pain starts to get better, (units unknown) (unknown) (unknown) (no date) (unknown) (unknown) I consulted wi the ED attending physician Dr. Rincon as needed for higher (units unknown) (unknown) (unknown) (no date) (unknown) (unknown) I have daina desouzaly reviewed the patient's vital signs and nursing notes as (units unknown) (unknown) (unknown) (no date) (unknown) (unknown) IMPRESSION:? L umbar spine without acute osseous abnormalities.? Age (units unknown) (unknown) (unknown) (no date) (unknown) (unknown) IMPRESSION:? M oderate bilateral hip osteoarthritis. (units unknown) (unknown) (unknown) (no date) (unknown) (unknown) INDICATIONS:? radiculopathy vs hip arthritis (units unknown) (unknown) (unknown) (no date) (unknown) (unknown) Imaging Data (units unknown) (unknown) (unknown) (no date) (unknown) (unknown) Independent wi storian: Patient (units unknown) (unknown) (unknown) (no date) (unknown) (unknown) Initial Vital Signs (units unknown) (unknown) (unknown) (no date) (unknown) (unknown) Initial Vital Signs: (units unknown) (unknown) (unknown) (no date) (unknown) (unknown) Instructions: Osteoarthritis, DI for Urinary Tract Infection (UTI) (units unknown) (unknown) (unknown) (no date) (unknown) (unknown) [address] [place] [address] (units unknown) (unknown) (unknown) (no date) (unknown) (unknown) Lab Data (units unknown) (unknown) (unknown) (no date) (unknown) (unknown) Lab Results (units unknown) (unknown) (unknown) (no date) (unknown) (unknown) Labs: (units unknown) (unknown) (unknown) (no date) (unknown) (unknown) Last Admin: 16:00 Dose: 1 tab (units unknown) (unknown) (unknown) (no date) (unknown) (unknown) Last Admin: 16:02 Dose: 1 each (units unknown) (unknown) (unknown) (no date) (unknown) (unknown) Lidocaine (Lid ocaine Patch 1 Each Adh..Patch) 1 each TOP NOW ONE (units unknown) (unknown) (unknown) (no date) (unknown) (unknown) MDM - Extremit y (Nontraumatic) (units unknown) (unknown) (unknown) (no date) (unknown) (unknown) MDM Narrative (units unknown) (unknown) (unknown) (no date) (unknown) (unknown) MSK: moves all extremities, no weakness, normal tone, not ambulatory, left foot (units unknown) (unknown) (unknown) (no date) (unknown) (unknown) Medical decisi on making narrative: (units unknown) (unknown) (unknown) (no date) (unknown) (unknown) Medication Instructions Recorded (units unknown) (unknown) (unknown) (no date) (unknown) (unknown) Mode of arrival: EMS (units unknown) (unknown) (unknown) (no date) (unknown) (unknown) Moderate multi level spondylosis of the imaged spine involving the lower thoracic (units unknown) (unknown) (unknown) (no date) (unknown) (unknown) Multiple etiol ogies for patient's symptoms considered including, but not limited (units unknown) (unknown) (unknown) (no date) (unknown) (unknown) My interpretat ion of imaging: Left hip and pelvis is significant only for (units unknown) (unknown) (unknown) (no date) (unknown) (unknown) My interpretat ion of lab studies: I obtained a urine from patient has [place] (units unknown) (unknown) (unknown) (no date) (unknown) (unknown) Narrative (units unknown) (unknown) (unknown) (no date) (unknown) (unknown) Neuro: clear s peech and normal cognition, A+O x3, GCS 15, no focal motor or (units unknown) (unknown) (unknown) (no date) (unknown) (unknown) New (units unknown) (unknown) (unknown) (no date) (unknown) (unknown) ONE (units unknown) (unknown) (unknown) (no date) (unknown) (unknown) Ordered cephal exin and hydrocodone for patient's pain (units unknown) (unknown) (unknown) (no date) (unknown) (unknown) Ordered: (units unknown) (unknown) (unknown) (no date) (unknown) (unknown) Orders (units unknown) (unknown) (unknown) (no date) (unknown) (unknown) Oxygen Deliver y Method Room Air 03/13/23 15:34 (units unknown) (unknown) (unknown) (no date) (unknown) (unknown) Oxygen Deliver y Method Room Air (units unknown) (unknown) (unknown) (no date) (unknown) (unknown) PROCEDURE:? XR HIP W PEL IF DONE LT 2V (units unknown) (unknown) (unknown) (no date) (unknown) (unknown) PROCEDURE:? XR LUMBAR SPINE 2-3V (units unknown) (unknown) (unknown) (no date) (unknown) (unknown) Patient Dispos ition: Home (units unknown) (unknown) (unknown) (no date) (unknown) (unknown) Patient History (uni ts unknown) (unknown) (unknown) (no date) (unknown) (unknown) Patient does n ot have history here in the emergency department to review. She (units unknown) (unknown) (unknown) (no date) (unknown) (unknown) Patient: Miranda Allen MR#: M (units unknown) (unknown) (unknown) (no date) (unknown) (unknown) Pertinent charlee rds include: No prior records available for review (units unknown) (unknown) (unknown) (no date) (unknown) (unknown) Prescriptions: (unit s unknown) (unknown) (unknown) (no date) (unknown) (unknown) Previous Rx's (units unknown) (unknown) (unknown) (no date) (unknown) (unknown) Pulse Oximetry 97 03/13/23 15:34 (units unknown) (unknown) (unknown) (no date) (unknown) (unknown) Pulse Oximetry 97 (u nits unknown) (unknown) (unknown) (no date) (unknown) (unknown) Pulse Rate 60 03/13/23 15:34 (units unknown) (unknown) (unknown) (no date) (unknown) (unknown) Pulse Rate 60 (units unknown) (unknown) (unknown) (no date) (unknown) (unknown) Qualifiers: (units unknown) (unknown) (unknown) (no date) (unknown) (unknown) Questions are addressed and there is agreement with the plan and for follow-up. (units unknown) (unknown) (unknown) (no date) (unknown) (unknown) ROS Unobtainab le: All systems reviewed + are unremarkable except as noted in HPI (units unknown) (unknown) (unknown) (no date) (unknown) (unknown) Radiologist's Impression: (units unknown) (unknown) (unknown) (no date) (unknown) (unknown) Related Data (units unknown) (unknown) (unknown) (no date) (unknown) (unknown) Respiratory Ra te 18 03/13/23 15:34 (units unknown) (unknown) (unknown) (no date) (unknown) (unknown) Respiratory Rate 18 (units unknown) (unknown) (unknown) (no date) (unknown) (unknown) Respiratory: n ormal work of breathing, without tachypnea or hypoxia. (units unknown) (unknown) (unknown) (no date) (unknown) (unknown) Review of Systems (u nits unknown) (unknown) (unknown) (no date) (unknown) (unknown) Reviewed vital s signs and nursing notes. (units unknown) (unknown) (unknown) (no date) (unknown) (unknown) Signed By: (units unknown) (unknown) (unknown) (no date) (unknown) (unknown) Skin: brisk ca pillary refill, without rash or wound (units unknown) (unknown) (unknown) (no date) (unknown) (unknown) Smoking Status : Never smoker (units unknown) (unknown) (unknown) (no date) (unknown) (unknown) Social History (units unknown) (unknown) (unknown) (no date) (unknown) (unknown) Social conside rations that may affect disposition: none (units unknown) (unknown) (unknown) (no date) (unknown) (unknown) Soft tissues:? Overlying bowel gas pattern is normal.? No suspicious soft tissue (units unknown) (unknown) (unknown) (no date) (unknown) (unknown) Soft tissues:? The visualized bowel gas pattern is normal.? No suspicious soft (units unknown) (unknown) (unknown) (no date) (unknown) (unknown) Source: patien t and EMS (units unknown) (unknown) (unknown) (no date) (unknown) (unknown) Stand Alone Fo carlene: Patient Portal/API (units unknown) (unknown) (unknown) (no date) (unknown) (unknown) Stated complai nt: Left Hip Pain (units unknown) (unknown) (unknown) (no date) (unknown) (unknown) Stop: 03/13/23 15:48 (units unknown) (unknown) (unknown) (no date) (unknown) (unknown) Substance Use Type: does not use (units unknown) (unknown) (unknown) (no date) (unknown) (unknown) TECHNIQUE:? 3 views of the lumbar spine were acquired.? (units unknown) (unknown) (unknown) (no date) (unknown) (unknown) TECHNIQUE:? AP pelvis with lateral view(s) of the left hip(s).? (units unknown) (unknown) (unknown) (no date) (unknown) (unknown) Temperature 98 .0 F 03/13/23 15:34 (units unknown) (unknown) (unknown) (no date) (unknown) (unknown) Temperature 98.0 F ( units unknown) (unknown) (unknown) (no date) (unknown) (unknown) This is a 73-y ear-old female who lives at an assisted living facility with a (units unknown) (unknown) (unknown) (no date) (unknown) (unknown) Time Seen by Mykel hemphill: 03/13/23 15:47 (units unknown) (unknown) (unknown) (no date) (unknown) (unknown) Ur Culture Ind icated? Specimen cultured (units unknown) (unknown) (unknown) (no date) (unknown) (unknown) Ur Squamous Ep ith Cells 1-5 /hpf (0-5/HPF) (units unknown) (unknown) (unknown) (no date) (unknown) (unknown) Urinary tract infection type: site unspecified Hematuria presence: without (units unknown) (unknown) (unknown) (no date) (unknown) (unknown) Urinary tract infection (units unknown) (unknown) (unknown) (no date) (unknown) (unknown) Urine Bacteria Moderate (10-30) H (None) (units unknown) (unknown) (unknown) (no date) (unknown) (unknown) Urine Culture Stat ( units unknown) (unknown) (unknown) (no date) (unknown) (unknown) Urine Dip (units unknown) (unknown) (unknown) (no date) (unknown) (unknown) Urine Microscopic St at (units unknown) (unknown) (unknown) (no date) (unknown) (unknown) Urine RBC None seen (0-5/HPF) (units unknown) (unknown) (unknown) (no date) (unknown) (unknown) Urine Specific [place] 1.015 (units unknown) (unknown) (unknown) (no date) (unknown) (unknown) Urine WBC 30-1 00/hpf H (0-5/HPF) (units unknown) (unknown) (unknown) (no date) (unknown) (unknown) Vital Signs - 8 hr ( units unknown) (unknown) (unknown) (no date) (unknown) (unknown) Vital Signs (units unknown) (unknown) (unknown) (no date) (unknown) (unknown) Vital signs: (units unknown) (unknown) (unknown) (no date) (unknown) (unknown) XR hip w pel i f done LT 2V Stat (units unknown) (unknown) (unknown) (no date) (unknown) (unknown) XR lumbar spin e 2-3V Stat (units unknown) (unknown) (unknown) (no date) (unknown) (unknown) [ ] New medica tion prescriptions sent to your pharmacy: [ ] (units unknown) (unknown) (unknown) (no date) (unknown) (unknown) [ ] No new med ications given (units unknown) (unknown) (unknown) (no date) (unknown) (unknown) [ x] New medic ation written as a paper prescription (units unknown) (unknown) (unknown) (no date) (unknown) (unknown) 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 (units unknown) (unknown) (unknown) (no date) (unknown) (unknown) afebrile, obese (uni ts unknown) (unknown) (unknown) (no date) (unknown) (unknown) alcohol intake frequency: other (units unknown) (unknown) (unknown) (no date) (unknown) (unknown) and below (units unknown) (unknown) (unknown) (no date) (unknown) (unknown) and she has hi story of bilateral knee pain. She denies recent fall but states (units unknown) (unknown) (unknown) (no date) (unknown) (unknown) and the lumbar spine.? Degenerative endplate changes, disc space loss, and (units unknown) (unknown) (unknown) (no date) (unknown) (unknown) appropriate fo r outpatient management. (units unknown) (unknown) (unknown) (no date) (unknown) (unknown) arthropathy, osteoarthritis, pyelonephritis (units unknown) (unknown) (unknown) (no date) (unknown) (unknown) at least for a n update. Let them know you were seen in the Emergency Department (units unknown) (unknown) (unknown) (no date) (unknown) (unknown) bacteria and WBCs (u nits unknown) (unknown) (unknown) (no date) (unknown) (unknown) bacteria urine is pending for culture, patient without flank tenderness treat (units unknown) (unknown) (unknown) (no date) (unknown) (unknown) bilateral lowe r extremities. Her left foot is in a Orthoglass splint and she (units unknown) (unknown) (unknown) (no date) (unknown) (unknown) bony lesions.? Degenerative changes of the bilateral hips and bilateral (units unknown) (unknown) (unknown) (no date) (unknown) (unknown) calcifications.? (un its unknown) (unknown) (unknown) (no date) (unknown) (unknown) cephalexin 500 mg capsule 500 mg PO QID 7 days #28 caps 03/13/23 (units unknown) (unknown) (unknown) (no date) (unknown) (unknown) cephalexin 500 mg capsule (units unknown) (unknown) (unknown) (no date) (unknown) (unknown) chronic. (units unknown) (unknown) (unknown) (no date) (unknown) (unknown) compression de formity of T12, patient is nontender over this area so likely is (units unknown) (unknown) (unknown) (no date) (unknown) (unknown) deformity (units unknown) (unknown) (unknown) (no date) (unknown) (unknown) denies any brittany k pain, states that she is had a difficult time getting around due (units unknown) (unknown) (unknown) (no date) (unknown) (unknown) denies recent fever chills, states that she uses a PURE wick to void and bought (units unknown) (unknown) (unknown) (no date) (unknown) (unknown) department wor sening left-sided inguinal, hip and anterior thigh pain. She (units unknown) (unknown) (unknown) (no date) (unknown) (unknown) edema, bilater al lower extremities are similar in nature (units unknown) (unknown) (unknown) (no date) (unknown) (unknown) endplate osteo phyte formation.? Mid and lower lumbar facet arthropathy.? No (units unknown) (unknown) (unknown) (no date) (unknown) (unknown) establish care with one of the [facility] primary care providers. (units unknown) (unknown) (unknown) (no date) (unknown) (unknown) extremities wi th equal strength. (units unknown) (unknown) (unknown) (no date) (unknown) (unknown) extremities, d enies weakness or sensation changes but states that she is just (units unknown) (unknown) (unknown) (no date) (unknown) (unknown) for the above problem. We will electronically transmit a record of today's note (units unknown) (unknown) (unknown) (no date) (unknown) (unknown) fractures.? (units unknown) (unknown) (unknown) (no date) (unknown) (unknown) had this anter ior left leg pain. States that both of her knees need replaced (units unknown) (unknown) (unknown) (no date) (unknown) (unknown) has follow-up scheduled. She denies any increased swelling to her lower (units unknown) (unknown) (unknown) (no date) (unknown) (unknown) hematuria Qual ified Code(s): N39.0 - Urinary tract infection, site not specified (units unknown) (unknown) (unknown) (no date) (unknown) (unknown) hydrocodone 5 mg-acetaminophen 325 1 tab PO BID PRN pain #14 tabs 03/13/23 (units unknown) (unknown) (unknown) (no date) (unknown) (unknown) hydrocodone-ac etaminop hen 5-325 mg tablet (units unknown) (unknown) (unknown) (no date) (unknown) (unknown) if your PCP or specialist is in our system. (units unknown) (unknown) (unknown) (no date) (unknown) (unknown) in plantar spl int, brisk cap refill to toes, no erythema or unilateral edema, no (units unknown) (unknown) (unknown) (no date) (unknown) (unknown) indeterminate but (u nits unknown) (unknown) (unknown) (no date) (unknown) (unknown) inguinal tende rness to palpation (units unknown) (unknown) (unknown) (no date) (unknown) (unknown) joints. (units unknown) (unknown) (unknown) (no date) (unknown) (unknown) left fractured foot from an injury a couple of weeks ago who presents emergency (units unknown) (unknown) (unknown) (no date) (unknown) (unknown) lesions.? Mode rate bilateral hip arthritic change.? Degenerative changes are (units unknown) (unknown) (unknown) (no date) (unknown) (unknown) level of care considerations and they were available for discussion and (units unknown) (unknown) (unknown) (no date) (unknown) (unknown) likely chronic anterior compression deformity of T12.? Moderate multilevel (units unknown) (unknown) (unknown) (no date) (unknown) (unknown) liquids down, fever greater than 101F, chills, or other concerning symptom. (units unknown) (unknown) (unknown) (no date) (unknown) (unknown) lower lumbar s pine.? Age-indeterminate but likely chronic anterior compression (units unknown) (unknown) (unknown) (no date) (unknown) (unknown) lumbar XR: (units unknown) (unknown) (unknown) (no date) (unknown) (unknown) lumbar (units unknown) (unknown) (unknown) (no date) (unknown) (unknown) mg tablet (units unknown) (unknown) (unknown) (no date) (unknown) (unknown) midline spinal tenderness to palpation, full range of motion to bilateral lower (units unknown) (unknown) (unknown) (no date) (unknown) (unknown) of the T12 rc tebral body.? Otherwise, no evidence suggest acute compression (units unknown) (unknown) (unknown) (no date) (unknown) (unknown) osteoarthritis and likely sciatica anterior of your left leg from her low back. (units unknown) (unknown) (unknown) (no date) (unknown) (unknown) osteoarthritis , lumbar spine x-ray is significant for degenerative changes of (units unknown) (unknown) (unknown) (no date) (unknown) (unknown) present (units unknown) (unknown) (unknown) (no date) (unknown) (unknown) prominent (units unknown) (unknown) (unknown) (no date) (unknown) (unknown) q.i.d., no naina or urine cultures available for review, patient is p.o. tolerant, (units unknown) (unknown) (unknown) (no date) (unknown) (unknown) recommendation s regarding plan of care and diagnostic testing. Patient is (units unknown) (unknown) (unknown) (no date) (unknown) (unknown) sacroiliac (units unknown) (unknown) (unknown) (no date) (unknown) (unknown) sensation deficits ( units unknown) (unknown) (unknown) (no date) (unknown) (unknown) spine (units unknown) (unknown) (unknown) (no date) (unknown) (unknown) spondylosis. (units unknown) (unknown) (unknown) (no date) (unknown) (unknown) suspicious bony (uni ts unknown) (unknown) (unknown) (no date) (unknown) (unknown) suspicious (units unknown) (unknown) (unknown) (no date) (unknown) (unknown) that she is solorio d multiple falls this year with her most recent fall in February. (units unknown) (unknown) (unknown) (no date) (unknown) (unknown) the bilateral sacroiliac joints lateral hips, age indeterminate anterior (units unknown) (unknown) (unknown) (no date) (unknown) (unknown) the (units unknown) (unknown) (unknown) (no date) (unknown) (unknown) tissue (units unknown) (unknown) (unknown) (no date) (unknown) (unknown) to this. She h as not walked in quite some time, has notable foot drop to (units unknown) (unknown) (unknown) (no date) (unknown) (unknown) to: Urinary tr act infection, lumbar radiculopathy, degenerative joint disease, (units unknown) (unknown) (unknown) (no date) (unknown) (unknown) well as prior records if available. (units unknown) (unknown) (unknown) (no date) (unknown) (unknown) which is posit bianca for leukocytes 3+, sent for urine microscopy positive for (units unknown) (unknown) (unknown) (no date) (unknown) (unknown) within the low er lumbar spine. (units unknown) (unknown) (unknown) (no date) (unknown) (unknown) without nausea , vomiting diarrhea, afebrile, nontoxic appearing. (units unknown) (unknown) Result panel 6 (unknown) (no date) (unknown) (unknown) (no value) (units unknown) (unknown) (unknown) (no date) (unknown) (unknown) <Electronicall y signed by Tima Rincon MD> (units unknown) (unknown) (unknown) (no date) (unknown) (unknown) *If you do not have a primary care provider please contact [phone] to (units unknown) (unknown) (unknown) (no date) (unknown) (unknown) *Please call a nd schedule follow up with your primary care provider in 2-3 days, (units unknown) (unknown) (unknown) (no date) (unknown) (unknown) *Please contin ue to take your regular medications as directed. (units unknown) (unknown) (unknown) (no date) (unknown) (unknown) *Return to the Emergency Department for worsening symptoms, inability to keep (units unknown) (unknown) (unknown) (no date) (unknown) (unknown) *What to do: (units unknown) (unknown) (unknown) (no date) (unknown) (unknown) *You have been diagnosed with a urinary tract infection, bilateral hip (units unknown) (unknown) (unknown) (no date) (unknown) (unknown) [id number] (units unknown) (unknown) (unknown) (no date) (unknown) (unknown) 03/13/23 15:47 (unit s unknown) (unknown) (unknown) (no date) (unknown) (unknown) 03/13/23 15:56 (unit s unknown) (unknown) (unknown) (no date) (unknown) (unknown) 03/13/23 1909 (units unknown) (unknown) (unknown) (no date) (unknown) (unknown) 03/13/23 Range/Units (units unknown) (unknown) (unknown) (no date) (unknown) (unknown) 03/13/23 (units unknown) (unknown) (unknown) (no date) (unknown) (unknown) 1 tab PO BID P RN (Reason: pain) Qty: 14 0RF (units unknown) (unknown) (unknown) (no date) (unknown) (unknown) 15:31 03/13/23 (unit s unknown) (unknown) (unknown) (no date) (unknown) (unknown) 15:32 03/13/23 (unit s unknown) (unknown) (unknown) (no date) (unknown) (unknown) 15:32 (units unknown) (unknown) (unknown) (no date) (unknown) (unknown) 15:34 03/13/23 (unit s unknown) (unknown) (unknown) (no date) (unknown) (unknown) 15:56 (units unknown) (unknown) (unknown) (no date) (unknown) (unknown) 16:00 03/13/23 (unit s unknown) (unknown) (unknown) (no date) (unknown) (unknown) 16:01 03/13/23 (unit s unknown) (unknown) (unknown) (no date) (unknown) (unknown) 16:01 (units unknown) (unknown) (unknown) (no date) (unknown) (unknown) 16:31 03/13/23 (unit s unknown) (unknown) (unknown) (no date) (unknown) (unknown) 17:00 (units unknown) (unknown) (unknown) (no date) (unknown) (unknown) 500 mg PO QID 7 Days Qty: 28 0RF (units unknown) (unknown) (unknown) (no date) (unknown) (unknown) ? (units unknown) (unknown) (unknown) (no date) (unknown) (unknown) Activity Restrictions/Additiona l Instructions: (units unknown) (unknown) (unknown) (no date) (unknown) (unknown) Age/Sex: 73 / F (uni ts unknown) (unknown) (unknown) (no date) (unknown) (unknown) Approved by: Alma Park M.D. on 03/13/2023 at 17:31 ? (units unknown) (unknown) (unknown) (no date) (unknown) (unknown) Approved by: Yves Larson M.D. on 03/13/2023 at 16:33 ? (units unknown) (unknown) (unknown) (no date) (unknown) (unknown) Bedside Urine Bilirubin - Negative (units unknown) (unknown) (unknown) (no date) (unknown) (unknown) Bedside Urine Glucose Negative (units unknown) (unknown) (unknown) (no date) (unknown) (unknown) Bedside Urine Ketone - Negative (units unknown) (unknown) (unknown) (no date) (unknown) (unknown) Bedside Urine Leukocytes +++ 500 (units unknown) (unknown) (unknown) (no date) (unknown) (unknown) Bedside Urine Nitrite + Positive (units unknown) (unknown) (unknown) (no date) (unknown) (unknown) Bedside Urine Occult Blood +/ (units unknown) (unknown) (unknown) (no date) (unknown) (unknown) Bedside Urine Protein - Negative (units unknown) (unknown) (unknown) (no date) (unknown) (unknown) Bedside Urine Urobilinogen - Negative (units unknown) (unknown) (unknown) (no date) (unknown) (unknown) Bedside Urine pH 6.0 (units unknown) (unknown) (unknown) (no date) (unknown) (unknown) Bilateral prim laurel osteoarthritis of hip, Compression deformity of vertebra, (units unknown) (unknown) (unknown) (no date) (unknown) (unknown) Blood Pressure 120/58 L (units unknown) (unknown) (unknown) (no date) (unknown) (unknown) Blood Pressure 122/58 L 122/58 L (units unknown) (unknown) (unknown) (no date) (unknown) (unknown) Blood Pressure (unit s unknown) (unknown) (unknown) (no date) (unknown) (unknown) Bones:? 5 wid-utc-wzbbvdf vertebrae are present.? There is mild levocurvature of (units unknown) (unknown) (unknown) (no date) (unknown) (unknown) Bones:? No fra ctures or dislocations.? Pelvic ring appears intact.? No (units unknown) (unknown) (unknown) (no date) (unknown) (unknown) COMPARISON:? None. ( units unknown) (unknown) (unknown) (no date) (unknown) (unknown) CV: regular ra te and rhythm, warm extremities no increased lower extremity (units unknown) (unknown) (unknown) (no date) (unknown) (unknown) Chief Complain t: Left hip and anterior thigh pain (units unknown) (unknown) (unknown) (no date) (unknown) (unknown) Chief complain t: Extremity Problem,Nontraumatic (units unknown) (unknown) (unknown) (no date) (unknown) (unknown) Clinical Impression: (units unknown) (unknown) (unknown) (no date) (unknown) (unknown) Course of care : Patient's urine dip is positive for leukocytes, your microscopy (units unknown) (unknown) (unknown) (no date) (unknown) (unknown) Course (units unknown) (unknown) (unknown) (no date) (unknown) (unknown) : 0 Acct:[id number] (units unknown) (unknown) (unknown) (no date) (unknown) (unknown) Date of Servic e: 03/13/23 (units unknown) (unknown) (unknown) (no date) (unknown) (unknown) 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 on 03/13/2023 at 17:28 ? ? (units unknown) (unknown) (unknown) (no date) (unknown) (unknown) Dictated by: Yves Larson M.D. on 03/13/2023 at 16:33 ? ? (units unknown) (unknown) (unknown) (no date) (unknown) (unknown) Discharge Plan (unit s unknown) (unknown) (unknown) (no date) (unknown) (unknown) Discontinued Medications (units unknown) (unknown) (unknown) (no date) (unknown) (unknown) Documented By: RO (u nits unknown) (unknown) (unknown) (no date) (unknown) (unknown) ED Orders (units unknown) (unknown) (unknown) (no date) (unknown) (unknown) ER Physician: KimberliwNieves (units unknown) (unknown) (unknown) (no date) (unknown) (unknown) Emergency Report (un its unknown) (unknown) (unknown) (no date) (unknown) (unknown) Esterase (units unknown) (unknown) (unknown) (no date) (unknown) (unknown) Exam Narrative: (uni ts unknown) (unknown) (unknown) (no date) (unknown) (unknown) Exam (units unknown) (unknown) (unknown) (no date) (unknown) (unknown) Extremity x-ray #2: (units unknown) (unknown) (unknown) (no date) (unknown) (unknown) FINDINGS:? (units unknown) (unknown) (unknown) (no date) (unknown) (unknown) GI: abdomen so ft, nondistended, without CVA tenderness bilaterally. Left (units unknown) (unknown) (unknown) (no date) (unknown) (unknown) General (units unknown) (unknown) (unknown) (no date) (unknown) (unknown) General: Pleas ant, sitting upright, in no acute distress, well groomed, (units unknown) (unknown) (unknown) (no date) (unknown) (unknown) HEENT: symmetr ical facial expressions, moist mucous membranes, neck is supple (units unknown) (unknown) (unknown) (no date) (unknown) (unknown) HPI - Extremit y Problem (units unknown) (unknown) (unknown) (no date) (unknown) (unknown) HPI Narrative: (unit s unknown) (unknown) (unknown) (no date) (unknown) (unknown) History of Pre sent Illness (units unknown) (unknown) (unknown) (no date) (unknown) (unknown) Hydrocodone Bitart/Acetaminophen (Hydrocodone/Acet 5/325 Tablet) 1 tab PO NOW (units unknown) (unknown) (unknown) (no date) (unknown) (unknown) I am sorry for your symptoms, I hope your pain starts to get better when we get (units unknown) (unknown) (unknown) (no date) (unknown) (unknown) I consulted wi the ED attending physician Dr. Rincon as needed for higher (units unknown) (unknown) (unknown) (no date) (unknown) (unknown) I have daina desouzaly reviewed the patient's vital signs and nursing notes as (units unknown) (unknown) (unknown) (no date) (unknown) (unknown) IMPRESSION:? L umbar spine without acute osseous abnormalities.? Age (units unknown) (unknown) (unknown) (no date) (unknown) (unknown) IMPRESSION:? M oderate bilateral hip osteoarthritis. (units unknown) (unknown) (unknown) (no date) (unknown) (unknown) INDICATIONS:? radiculopathy vs hip arthritis (units unknown) (unknown) (unknown) (no date) (unknown) (unknown) Imaging Data (units unknown) (unknown) (unknown) (no date) (unknown) (unknown) Independent wi storian: Patient (units unknown) (unknown) (unknown) (no date) (unknown) (unknown) Infection (UTI ), DI for Osteoarthritis (units unknown) (unknown) (unknown) (no date) (unknown) (unknown) Initial Vital Signs (units unknown) (unknown) (unknown) (no date) (unknown) (unknown) Initial Vital Signs: (units unknown) (unknown) (unknown) (no date) (unknown) (unknown) Instructions: Osteoarthritis, Degenerative Disc Disease, DI for Urinary Tract (units unknown) (unknown) (unknown) (no date) (unknown) (unknown) [address] [address] (units unknown) (unknown) (unknown) (no date) (unknown) (unknown) Lab Data (units unknown) (unknown) (unknown) (no date) (unknown) (unknown) Lab Results (units unknown) (unknown) (unknown) (no date) (unknown) (unknown) Labs: (units unknown) (unknown) (unknown) (no date) (unknown) (unknown) Last Admin: 16:00 Dose: 1 tab (units unknown) (unknown) (unknown) (no date) (unknown) (unknown) Last Admin: 16:02 Dose: 1 each (units unknown) (unknown) (unknown) (no date) (unknown) (unknown) Lidocaine (Lid ocaine Patch 1 Each Adh..Patch) 1 each TOP NOW ONE (units unknown) (unknown) (unknown) (no date) (unknown) (unknown) MDM - Extremit y (Nontraumatic) (units unknown) (unknown) (unknown) (no date) (unknown) (unknown) MDM Narrative (units unknown) (unknown) (unknown) (no date) (unknown) (unknown) MSK: moves all extremities, no weakness, normal tone, not ambulatory, left foot (units unknown) (unknown) (unknown) (no date) (unknown) (unknown) Medical decisi on making narrative: (units unknown) (unknown) (unknown) (no date) (unknown) (unknown) Medication Instructions Recorded (units unknown) (unknown) (unknown) (no date) (unknown) (unknown) Mode of arrival: EMS (units unknown) (unknown) (unknown) (no date) (unknown) (unknown) Moderate multi level spondylosis of the imaged spine involving the lower thoracic (units unknown) (unknown) (unknown) (no date) (unknown) (unknown) Multiple etiol ogies for patient's symptoms considered including, but not limited (units unknown) (unknown) (unknown) (no date) (unknown) (unknown) My interpretat ion of imaging: Left hip and pelvis is significant only for (units unknown) (unknown) (unknown) (no date) (unknown) (unknown) My interpretat ion of lab studies: I obtained a urine from patient has PureWick (units unknown) (unknown) (unknown) (no date) (unknown) (unknown) Narrative (units unknown) (unknown) (unknown) (no date) (unknown) (unknown) Neuro: clear s peech and normal cognition, A+O x3, GCS 15, no focal motor or (units unknown) (unknown) (unknown) (no date) (unknown) (unknown) New (units unknown) (unknown) (unknown) (no date) (unknown) (unknown) ONE (units unknown) (unknown) (unknown) (no date) (unknown) (unknown) Ordered cephal exin and hydrocodone for patient's pain (units unknown) (unknown) (unknown) (no date) (unknown) (unknown) Ordered: (units unknown) (unknown) (unknown) (no date) (unknown) (unknown) Orders (units unknown) (unknown) (unknown) (no date) (unknown) (unknown) Oxygen Deliver y Method Room Air (units unknown) (unknown) (unknown) (no date) (unknown) (unknown) Oxygen Delivery Meth od (units unknown) (unknown) (unknown) (no date) (unknown) (unknown) PROCEDURE:? XR HIP W PEL IF DONE LT 2V (units unknown) (unknown) (unknown) (no date) (unknown) (unknown) PROCEDURE:? XR LUMBAR SPINE 2-3V (units unknown) (unknown) (unknown) (no date) (unknown) (unknown) Patient Dispos ition: Home (units unknown) (unknown) (unknown) (no date) (unknown) (unknown) Patient History (uni ts unknown) (unknown) (unknown) (no date) (unknown) (unknown) Patient does n ot have history here in the emergency department to review. She (units unknown) (unknown) (unknown) (no date) (unknown) (unknown) Patient: Miranda Allen MR#: [id number] (units unknown) (unknown) (unknown) (no date) (unknown) (unknown) Pertinent charlee rds include: No prior records available for review (units unknown) (unknown) (unknown) (no date) (unknown) (unknown) Please follow- up with your regular doctor and have her urine tested in 1 week to (units unknown) (unknown) (unknown) (no date) (unknown) (unknown) Prescriptions: (unit s unknown) (unknown) (unknown) (no date) (unknown) (unknown) Previous Rx's (units unknown) (unknown) (unknown) (no date) (unknown) (unknown) Pulse Oximetry 95 98 (units unknown) (unknown) (unknown) (no date) (unknown) (unknown) Pulse Oximetry 97 98 (units unknown) (unknown) (unknown) (no date) (unknown) (unknown) Pulse Oximetry 98 03/13/23 15:31 (units unknown) (unknown) (unknown) (no date) (unknown) (unknown) Pulse Oximetry 98 99 98 (units unknown) (unknown) (unknown) (no date) (unknown) (unknown) Pulse Rate 57 L 03/13/23 15:31 (units unknown) (unknown) (unknown) (no date) (unknown) (unknown) Pulse Rate 57 L 54 L (units unknown) (unknown) (unknown) (no date) (unknown) (unknown) Pulse Rate 57 L 55 L 57 L (units unknown) (unknown) (unknown) (no date) (unknown) (unknown) Pulse Rate 60 57 L ( units unknown) (unknown) (unknown) (no date) (unknown) (unknown) Qualifiers: (units unknown) (unknown) (unknown) (no date) (unknown) (unknown) Questions are addressed and there is agreement with the plan and for follow-up. (units unknown) (unknown) (unknown) (no date) (unknown) (unknown) ROS Unobtainab le: All systems reviewed + are unremarkable except as noted in HPI (units unknown) (unknown) (unknown) (no date) (unknown) (unknown) Radiologist's Impression: (units unknown) (unknown) (unknown) (no date) (unknown) (unknown) Related Data (units unknown) (unknown) (unknown) (no date) (unknown) (unknown) Respiratory Rate 18 (units unknown) (unknown) (unknown) (no date) (unknown) (unknown) Respiratory Rate (un its unknown) (unknown) (unknown) (no date) (unknown) (unknown) Respiratory: n ormal work of breathing, without tachypnea or hypoxia. (units unknown) (unknown) (unknown) (no date) (unknown) (unknown) Review of Systems (u nits unknown) (unknown) (unknown) (no date) (unknown) (unknown) Reviewed vital s signs and nursing notes. (units unknown) (unknown) (unknown) (no date) (unknown) (unknown) Signed By: (units unknown) (unknown) (unknown) (no date) (unknown) (unknown) Skin: brisk ca pillary refill, without rash or wound (units unknown) (unknown) (unknown) (no date) (unknown) (unknown) Smoking Status : Never smoker (units unknown) (unknown) (unknown) (no date) (unknown) (unknown) Social History (units unknown) (unknown) (unknown) (no date) (unknown) (unknown) Social conside rations that may affect disposition: none (units unknown) (unknown) (unknown) (no date) (unknown) (unknown) Soft tissues:? Overlying bowel gas pattern is normal.? No suspicious soft tissue (units unknown) (unknown) (unknown) (no date) (unknown) (unknown) Soft tissues:? The visualized bowel gas pattern is normal.? No suspicious soft (units unknown) (unknown) (unknown) (no date) (unknown) (unknown) Source: patien t and EMS (units unknown) (unknown) (unknown) (no date) (unknown) (unknown) Stand Alone Fo carlene: Patient Portal/API (units unknown) (unknown) (unknown) (no date) (unknown) (unknown) Stated complai nt: Left Hip Pain (units unknown) (unknown) (unknown) (no date) (unknown) (unknown) Stop: 03/13/23 15:48 (units unknown) (unknown) (unknown) (no date) (unknown) (unknown) Substance Use Type: does not use (units unknown) (unknown) (unknown) (no date) (unknown) (unknown) TECHNIQUE:? 3 views of the lumbar spine were acquired.? (units unknown) (unknown) (unknown) (no date) (unknown) (unknown) TECHNIQUE:? AP pelvis with lateral view(s) of the left hip(s).? (units unknown) (unknown) (unknown) (no date) (unknown) (unknown) Temperature 98.0 F ( units unknown) (unknown) (unknown) (no date) (unknown) (unknown) Temperature (units unknown) (unknown) (unknown) (no date) (unknown) (unknown) This is a 73-y ear-old female who lives at an assisted living facility with a (units unknown) (unknown) (unknown) (no date) (unknown) (unknown) Time Seen by Mykel hemphill: 03/13/23 15:47 (units unknown) (unknown) (unknown) (no date) (unknown) (unknown) Ur Culture Ind icated? Specimen cultured (units unknown) (unknown) (unknown) (no date) (unknown) (unknown) Ur Squamous Ep ith Cells 1-5 /hpf (0-5/HPF) (units unknown) (unknown) (unknown) (no date) (unknown) (unknown) Urinary tract infection type: site unspecified Hematuria presence: without (units unknown) (unknown) (unknown) (no date) (unknown) (unknown) Urinary tract infection (units unknown) (unknown) (unknown) (no date) (unknown) (unknown) Urine Bacteria Moderate (10-30) H (None) (units unknown) (unknown) (unknown) (no date) (unknown) (unknown) Urine Culture Stat ( units unknown) (unknown) (unknown) (no date) (unknown) (unknown) Urine Dip (units unknown) (unknown) (unknown) (no date) (unknown) (unknown) Urine Microscopic St at (units unknown) (unknown) (unknown) (no date) (unknown) (unknown) Urine RBC None seen (0-5/HPF) (units unknown) (unknown) (unknown) (no date) (unknown) (unknown) Urine Specific [place] 1.015 (units unknown) (unknown) (unknown) (no date) (unknown) (unknown) Urine WBC 30-1 00/hpf H (0-5/HPF) (units unknown) (unknown) (unknown) (no date) (unknown) (unknown) Vital Signs - 8 hr ( units unknown) (unknown) (unknown) (no date) (unknown) (unknown) Vital Signs (units unknown) (unknown) (unknown) (no date) (unknown) (unknown) Vital signs: (units unknown) (unknown) (unknown) (no date) (unknown) (unknown) XR hip w pel i f done LT 2V Stat (units unknown) (unknown) (unknown) (no date) (unknown) (unknown) XR lumbar spin e 2-3V Stat (units unknown) (unknown) (unknown) (no date) (unknown) (unknown) [ ] New medica tion prescriptions sent to your pharmacy: [ ] (units unknown) (unknown) (unknown) (no date) (unknown) (unknown) [ ] No new med ications given (units unknown) (unknown) (unknown) (no date) (unknown) (unknown) [ x] New medic ation written as a paper prescription (units unknown) (unknown) (unknown) (no date) (unknown) (unknown) 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 (units unknown) (unknown) (unknown) (no date) (unknown) (unknown) afebrile, obese (uni ts unknown) (unknown) (unknown) (no date) (unknown) (unknown) alcohol intake frequency: other (units unknown) (unknown) (unknown) (no date) (unknown) (unknown) and below (units unknown) (unknown) (unknown) (no date) (unknown) (unknown) and she has hi story of bilateral knee pain. She denies recent fall but states (units unknown) (unknown) (unknown) (no date) (unknown) (unknown) and the lumbar spine.? Degenerative endplate changes, disc space loss, and (units unknown) (unknown) (unknown) (no date) (unknown) (unknown) antibiotic kayden nge. I hope you feel better soon, it was a pleasure to meet you. (units unknown) (unknown) (unknown) (no date) (unknown) (unknown) appropriate fo r outpatient management. (units unknown) (unknown) (unknown) (no date) (unknown) (unknown) arthropathy, osteoarthritis, pyelonephritis (units unknown) (unknown) (unknown) (no date) (unknown) (unknown) at least for a n update. Let them know you were seen in the Emergency Department (units unknown) (unknown) (unknown) (no date) (unknown) (unknown) bacteria and WBCs (u nits unknown) (unknown) (unknown) (no date) (unknown) (unknown) bacteria urine is pending for culture, patient without flank tenderness treat (units unknown) (unknown) (unknown) (no date) (unknown) (unknown) bilateral lowe r extremities. Her left foot is in a Orthoglass splint and she (units unknown) (unknown) (unknown) (no date) (unknown) (unknown) bony lesions.? Degenerative changes of the bilateral hips and bilateral (units unknown) (unknown) (unknown) (no date) (unknown) (unknown) calcifications.? (un its unknown) (unknown) (unknown) (no date) (unknown) (unknown) cephalexin 500 mg capsule 500 mg PO QID 7 days #28 caps 03/13/23 (units unknown) (unknown) (unknown) (no date) (unknown) (unknown) cephalexin 500 mg capsule (units unknown) (unknown) (unknown) (no date) (unknown) (unknown) chronic. (units unknown) (unknown) (unknown) (no date) (unknown) (unknown) compression de formity of T12, patient is nontender over this area so likely is (units unknown) (unknown) (unknown) (no date) (unknown) (unknown) deformity (units unknown) (unknown) (unknown) (no date) (unknown) (unknown) denies any brittany k pain, states that she is had a difficult time getting around due (units unknown) (unknown) (unknown) (no date) (unknown) (unknown) denies recent fever chills, states that she uses a PURE wick to void and bought (units unknown) (unknown) (unknown) (no date) (unknown) (unknown) department wor sening left-sided inguinal, hip and anterior thigh pain. She (units unknown) (unknown) (unknown) (no date) (unknown) (unknown) edema, bilater al lower extremities are similar in nature (units unknown) (unknown) (unknown) (no date) (unknown) (unknown) endplate osteo phyte formation.? Mid and lower lumbar facet arthropathy.? No (units unknown) (unknown) (unknown) (no date) (unknown) (unknown) establish care with one of the [facility] primary care providers. (units unknown) (unknown) (unknown) (no date) (unknown) (unknown) extremities wi th equal strength. (units unknown) (unknown) (unknown) (no date) (unknown) (unknown) extremities, d enies weakness or sensation changes but states that she is just (units unknown) (unknown) (unknown) (no date) (unknown) (unknown) for the above problem. We will electronically transmit a record of today's note (units unknown) (unknown) (unknown) (no date) (unknown) (unknown) fractures.? (units unknown) (unknown) (unknown) (no date) (unknown) (unknown) had this anter ior left leg pain. States that both of her knees need replaced (units unknown) (unknown) (unknown) (no date) (unknown) (unknown) has follow-up scheduled. She denies any increased swelling to her lower (units unknown) (unknown) (unknown) (no date) (unknown) (unknown) hematuria Qual ified Code(s): N39.0 - Urinary tract infection, site not specified (units unknown) (unknown) (unknown) (no date) (unknown) (unknown) hydrocodone 5 mg-acetaminophen 325 1 tab PO BID PRN pain #14 tabs 03/13/23 (units unknown) (unknown) (unknown) (no date) (unknown) (unknown) hydrocodone-ac etaminop hen 5-325 mg tablet (units unknown) (unknown) (unknown) (no date) (unknown) (unknown) if your PCP or specialist is in our system. (units unknown) (unknown) (unknown) (no date) (unknown) (unknown) in plantar spl int, brisk cap refill to toes, no erythema or unilateral edema, no (units unknown) (unknown) (unknown) (no date) (unknown) (unknown) indeterminate but (u nits unknown) (unknown) (unknown) (no date) (unknown) (unknown) inguinal tende rness to palpation (units unknown) (unknown) (unknown) (no date) (unknown) (unknown) joints. (units unknown) (unknown) (unknown) (no date) (unknown) (unknown) left fractured foot from an injury a couple of weeks ago who presents emergency (units unknown) (unknown) (unknown) (no date) (unknown) (unknown) lesions.? Mode rate bilateral hip arthritic change.? Degenerative changes are (units unknown) (unknown) (unknown) (no date) (unknown) (unknown) level of care considerations and they were available for discussion and (units unknown) (unknown) (unknown) (no date) (unknown) (unknown) likely chronic anterior compression deformity of T12.? Moderate multilevel (units unknown) (unknown) (unknown) (no date) (unknown) (unknown) liquids down, fever greater than 101F, chills, or other concerning symptom. (units unknown) (unknown) (unknown) (no date) (unknown) (unknown) lower lumbar s pine.? Age-indeterminate but likely chronic anterior compression (units unknown) (unknown) (unknown) (no date) (unknown) (unknown) lumbar XR: (units unknown) (unknown) (unknown) (no date) (unknown) (unknown) lumbar (units unknown) (unknown) (unknown) (no date) (unknown) (unknown) make sure that it is improved. We will call you if you need to make an (units unknown) (unknown) (unknown) (no date) (unknown) (unknown) mg tablet (units unknown) (unknown) (unknown) (no date) (unknown) (unknown) midline spinal tenderness to palpation, full range of motion to bilateral lower (units unknown) (unknown) (unknown) (no date) (unknown) (unknown) of the T12 rc tebral body.? Otherwise, no evidence suggest acute compression (units unknown) (unknown) (unknown) (no date) (unknown) (unknown) osteoarthritis and likely sciatica anterior of your left leg from her low back. (units unknown) (unknown) (unknown) (no date) (unknown) (unknown) osteoarthritis , lumbar spine x-ray is significant for degenerative changes of (units unknown) (unknown) (unknown) (no date) (unknown) (unknown) pain pills to use in addition to Tylenol and ibuprofen as tolerated for your (units unknown) (unknown) (unknown) (no date) (unknown) (unknown) pain. Please s tera hydrated, drinking ensure you are getting good Lissa care. (units unknown) (unknown) (unknown) (no date) (unknown) (unknown) present (units unknown) (unknown) (unknown) (no date) (unknown) (unknown) prominent (units unknown) (unknown) (unknown) (no date) (unknown) (unknown) q.i.d., no naina or urine cultures available for review, patient is p.o. tolerant, (units unknown) (unknown) (unknown) (no date) (unknown) (unknown) recommendation s regarding plan of care and diagnostic testing. Patient is (units unknown) (unknown) (unknown) (no date) (unknown) (unknown) sacroiliac (units unknown) (unknown) (unknown) (no date) (unknown) (unknown) sensation deficits ( units unknown) (unknown) (unknown) (no date) (unknown) (unknown) spine (units unknown) (unknown) (unknown) (no date) (unknown) (unknown) spondylosis. (units unknown) (unknown) (unknown) (no date) (unknown) (unknown) suspicious bony (uni ts unknown) (unknown) (unknown) (no date) (unknown) (unknown) suspicious (units unknown) (unknown) (unknown) (no date) (unknown) (unknown) that she is solorio d multiple falls this year with her most recent fall in February. (units unknown) (unknown) (unknown) (no date) (unknown) (unknown) the bilateral sacroiliac joints lateral hips, age indeterminate anterior (units unknown) (unknown) (unknown) (no date) (unknown) (unknown) the (units unknown) (unknown) (unknown) (no date) (unknown) (unknown) this infection under control. Please finish these antibiotics, I have given you (units unknown) (unknown) (unknown) (no date) (unknown) (unknown) tissue (units unknown) (unknown) (unknown) (no date) (unknown) (unknown) to this. She h as not walked in quite some time, has notable foot drop to (units unknown) (unknown) (unknown) (no date) (unknown) (unknown) to: Urinary tr act infection, lumbar radiculopathy, degenerative joint disease, (units unknown) (unknown) (unknown) (no date) (unknown) (unknown) well as prior records if available. (units unknown) (unknown) (unknown) (no date) (unknown) (unknown) which is posit bianca for leukocytes 3+, sent for urine microscopy positive for (units unknown) (unknown) (unknown) (no date) (unknown) (unknown) within the low er lumbar spine. (units unknown) (unknown) (unknown) (no date) (unknown) (unknown) without nausea , vomiting diarrhea, afebrile, nontoxic appearing. (units unknown) (unknown) Result panel 7 (unknown) (no date) (unknown) (unknown) (no value) (units unknown) (unknown) (unknown) (no date) (unknown) (unknown) <Electronicall y signed by Nieves J FILM PRINTER Crew> (units unknown) (unknown) (unknown) (no date) (unknown) (unknown) <Electronicall y signed by Tima Rincon MD> (units unknown) (unknown) (unknown) (no date) (unknown) (unknown) *If you do not have a primary care provider please contact [phone] to (units unknown) (unknown) (unknown) (no date) (unknown) (unknown) *Please call a nd schedule follow up with your primary care provider in 2-3 days, (units unknown) (unknown) (unknown) (no date) (unknown) (unknown) *Please contin ue to take your regular medications as directed. (units unknown) (unknown) (unknown) (no date) (unknown) (unknown) *Return to the Emergency Department for worsening symptoms, inability to keep (units unknown) (unknown) (unknown) (no date) (unknown) (unknown) *What to do: (units unknown) (unknown) (unknown) (no date) (unknown) (unknown) *You have been diagnosed with a urinary tract infection, bilateral hip (units unknown) (unknown) (unknown) (no date) (unknown) (unknown) [id number] (units unknown) (unknown) (unknown) (no date) (unknown) (unknown) 03/13/23 15:47 (unit s unknown) (unknown) (unknown) (no date) (unknown) (unknown) 03/13/23 15:56 (unit s unknown) (unknown) (unknown) (no date) (unknown) (unknown) 03/13/23 1909 (units unknown) (unknown) (unknown) (no date) (unknown) (unknown) 03/13/23 1956 (units unknown) (unknown) (unknown) (no date) (unknown) (unknown) 03/13/23 Range/Units (units unknown) (unknown) (unknown) (no date) (unknown) (unknown) 03/13/23 (units unknown) (unknown) (unknown) (no date) (unknown) (unknown) 1 tab PO BID P RN (Reason: pain) Qty: 14 0RF (units unknown) (unknown) (unknown) (no date) (unknown) (unknown) 15:31 03/13/23 (unit s unknown) (unknown) (unknown) (no date) (unknown) (unknown) 15:32 03/13/23 (unit s unknown) (unknown) (unknown) (no date) (unknown) (unknown) 15:32 (units unknown) (unknown) (unknown) (no date) (unknown) (unknown) 15:34 03/13/23 (unit s unknown) (unknown) (unknown) (no date) (unknown) (unknown) 15:56 (units unknown) (unknown) (unknown) (no date) (unknown) (unknown) 16:00 03/13/23 (unit s unknown) (unknown) (unknown) (no date) (unknown) (unknown) 16:01 03/13/23 (unit s unknown) (unknown) (unknown) (no date) (unknown) (unknown) 16:01 (units unknown) (unknown) (unknown) (no date) (unknown) (unknown) 16:31 03/13/23 (unit s unknown) (unknown) (unknown) (no date) (unknown) (unknown) 17:00 (units unknown) (unknown) (unknown) (no date) (unknown) (unknown) 17:30 03/13/23 (unit s unknown) (unknown) (unknown) (no date) (unknown) (unknown) 18:19 03/13/23 (unit s unknown) (unknown) (unknown) (no date) (unknown) (unknown) 18:19 (units unknown) (unknown) (unknown) (no date) (unknown) (unknown) 500 mg PO QID 7 Days Qty: 28 0RF (units unknown) (unknown) (unknown) (no date) (unknown) (unknown) ? (units unknown) (unknown) (unknown) (no date) (unknown) (unknown) Activity Restrictions/Additiona l Instructions: (units unknown) (unknown) (unknown) (no date) (unknown) (unknown) Age/Sex: 73 / F (uni ts unknown) (unknown) (unknown) (no date) (unknown) (unknown) Approved by: Alma Park M.D. on 03/13/2023 at 17:31 ? (units unknown) (unknown) (unknown) (no date) (unknown) (unknown) Approved by: Yves Larson M.D. on 03/13/2023 at 16:33 ? (units unknown) (unknown) (unknown) (no date) (unknown) (unknown) Bedside Urine Bilirubin - Negative (units unknown) (unknown) (unknown) (no date) (unknown) (unknown) Bedside Urine Glucose Negative (units unknown) (unknown) (unknown) (no date) (unknown) (unknown) Bedside Urine Ketone - Negative (units unknown) (unknown) (unknown) (no date) (unknown) (unknown) Bedside Urine Leukocytes +++ 500 (units unknown) (unknown) (unknown) (no date) (unknown) (unknown) Bedside Urine Nitrite + Positive (units unknown) (unknown) (unknown) (no date) (unknown) (unknown) Bedside Urine Occult Blood +/ (units unknown) (unknown) (unknown) (no date) (unknown) (unknown) Bedside Urine Protein - Negative (units unknown) (unknown) (unknown) (no date) (unknown) (unknown) Bedside Urine Urobilinogen - Negative (units unknown) (unknown) (unknown) (no date) (unknown) (unknown) Bedside Urine pH 6.0 (units unknown) (unknown) (unknown) (no date) (unknown) (unknown) Bilateral prim laurel osteoarthritis of hip, Compression deformity of vertebra, (units unknown) (unknown) (unknown) (no date) (unknown) (unknown) Blood Pressure 117/57 L (units unknown) (unknown) (unknown) (no date) (unknown) (unknown) Blood Pressure 120/58 L (units unknown) (unknown) (unknown) (no date) (unknown) (unknown) Blood Pressure 122/58 L 122/58 L (units unknown) (unknown) (unknown) (no date) (unknown) (unknown) Blood Pressure (unit s unknown) (unknown) (unknown) (no date) (unknown) (unknown) Bones:? 5 [id number] vertebrae are present.? There is mild levocurvature of (units unknown) (unknown) (unknown) (no date) (unknown) (unknown) Bones:? No fra ctures or dislocations.? Pelvic ring appears intact.? No (units unknown) (unknown) (unknown) (no date) (unknown) (unknown) COMPARISON:? None. ( units unknown) (unknown) (unknown) (no date) (unknown) (unknown) CV: regular ra te and rhythm, warm extremities no increased lower extremity (units unknown) (unknown) (unknown) (no date) (unknown) (unknown) Chief Complain t: Left hip and anterior thigh pain (units unknown) (unknown) (unknown) (no date) (unknown) (unknown) Chief complain t: Extremity Problem,Nontraumatic (units unknown) (unknown) (unknown) (no date) (unknown) (unknown) Clinical Impression: (units unknown) (unknown) (unknown) (no date) (unknown) (unknown) Course of care : Patient's urine dip is positive for leukocytes, microscopy (units unknown) (unknown) (unknown) (no date) (unknown) (unknown) Course (units unknown) (unknown) (unknown) (no date) (unknown) (unknown) : 0 Acct:[id number] (units unknown) (unknown) (unknown) (no date) (unknown) (unknown) Date of Servic e: 03/13/23 (units unknown) (unknown) (unknown) (no date) (unknown) (unknown) 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 on 03/13/2023 at 17:28 ? ? (units unknown) (unknown) (unknown) (no date) (unknown) (unknown) Dictated by: Yves Larson M.D. on 03/13/2023 at 16:33 ? ? (units unknown) (unknown) (unknown) (no date) (unknown) (unknown) Discharge Plan (unit s unknown) (unknown) (unknown) (no date) (unknown) (unknown) Discontinued Medications (units unknown) (unknown) (unknown) (no date) (unknown) (unknown) Documented By: NAS (u nits unknown) (unknown) (unknown) (no date) (unknown) (unknown) ED Orders (units unknown) (unknown) (unknown) (no date) (unknown) (unknown) ER Physician: KimberliwNieves (units unknown) (unknown) (unknown) (no date) (unknown) (unknown) Emergency Report (un its unknown) (unknown) (unknown) (no date) (unknown) (unknown) Esterase (units unknown) (unknown) (unknown) (no date) (unknown) (unknown) Exam Narrative: (uni ts unknown) (unknown) (unknown) (no date) (unknown) (unknown) Exam (units unknown) (unknown) (unknown) (no date) (unknown) (unknown) Extremity x-ray #2: (units unknown) (unknown) (unknown) (no date) (unknown) (unknown) FINDINGS:? (units unknown) (unknown) (unknown) (no date) (unknown) (unknown) GI: abdomen so ft, nondistended, without CVA tenderness bilaterally. Left (units unknown) (unknown) (unknown) (no date) (unknown) (unknown) General (units unknown) (unknown) (unknown) (no date) (unknown) (unknown) General: Pleas ant, sitting upright, in no acute distress, well groomed, (units unknown) (unknown) (unknown) (no date) (unknown) (unknown) HEENT: symmetr ical facial expressions, moist mucous membranes, neck is supple (units unknown) (unknown) (unknown) (no date) (unknown) (unknown) HPI - Extremit y Problem (units unknown) (unknown) (unknown) (no date) (unknown) (unknown) HPI Narrative: (unit s unknown) (unknown) (unknown) (no date) (unknown) (unknown) History of Pre sent Illness (units unknown) (unknown) (unknown) (no date) (unknown) (unknown) Hydrocodone Bitart/Acetaminophen (Hydrocodone/Acet 5/325 Tablet) 1 tab PO NOW (units unknown) (unknown) (unknown) (no date) (unknown) (unknown) I am sorry for your symptoms, I hope your pain starts to get better when we get (units unknown) (unknown) (unknown) (no date) (unknown) (unknown) I consulted wi the ED attending physician Dr. Rincon as needed for higher (units unknown) (unknown) (unknown) (no date) (unknown) (unknown) I have daina desouzaly reviewed the patient's vital signs and nursing notes as (units unknown) (unknown) (unknown) (no date) (unknown) (unknown) IMPRESSION:? L umbar spine without acute osseous abnormalities.? Age (units unknown) (unknown) (unknown) (no date) (unknown) (unknown) IMPRESSION:? M oderate bilateral hip osteoarthritis. (units unknown) (unknown) (unknown) (no date) (unknown) (unknown) INDICATIONS:? radiculopathy vs hip arthritis (units unknown) (unknown) (unknown) (no date) (unknown) (unknown) Imaging Data (units unknown) (unknown) (unknown) (no date) (unknown) (unknown) Independent wi storian: Patient (units unknown) (unknown) (unknown) (no date) (unknown) (unknown) Infection (UTI ), DI for Osteoarthritis (units unknown) (unknown) (unknown) (no date) (unknown) (unknown) Initial Vital Signs (units unknown) (unknown) (unknown) (no date) (unknown) (unknown) Initial Vital Signs: (units unknown) (unknown) (unknown) (no date) (unknown) (unknown) Instructions: Osteoarthritis, Degenerative Disc Disease, DI for Urinary Tract (units unknown) (unknown) (unknown) (no date) (unknown) (unknown) [place] [address] (units unknown) (unknown) (unknown) (no date) (unknown) (unknown) Lab Data (units unknown) (unknown) (unknown) (no date) (unknown) (unknown) Lab Results (units unknown) (unknown) (unknown) (no date) (unknown) (unknown) Labs: (units unknown) (unknown) (unknown) (no date) (unknown) (unknown) Last Admin: 16:00 Dose: 1 tab (units unknown) (unknown) (unknown) (no date) (unknown) (unknown) Last Admin: 16:02 Dose: 1 each (units unknown) (unknown) (unknown) (no date) (unknown) (unknown) Lidocaine (Lid ocaine Patch 1 Each Adh..Patch) 1 each TOP NOW ONE (units unknown) (unknown) (unknown) (no date) (unknown) (unknown) MDM - Extremit y (Nontraumatic) (units unknown) (unknown) (unknown) (no date) (unknown) (unknown) MDM Narrative (units unknown) (unknown) (unknown) (no date) (unknown) (unknown) MSK: moves all extremities, no weakness, normal tone, not ambulatory, left foot (units unknown) (unknown) (unknown) (no date) (unknown) (unknown) Medical decisi on making narrative: (units unknown) (unknown) (unknown) (no date) (unknown) (unknown) Medication Instructions Recorded (units unknown) (unknown) (unknown) (no date) (unknown) (unknown) Mode of arrival: EMS (units unknown) (unknown) (unknown) (no date) (unknown) (unknown) Moderate multi level spondylosis of the imaged spine involving the lower thoracic (units unknown) (unknown) (unknown) (no date) (unknown) (unknown) Multiple etiol ogies for patient's symptoms considered including, but not limited (units unknown) (unknown) (unknown) (no date) (unknown) (unknown) My interpretat ion of imaging: Left hip and pelvis is significant only for (units unknown) (unknown) (unknown) (no date) (unknown) (unknown) My interpretat ion of lab studies: I obtained a urine from patient has PureWick (units unknown) (unknown) (unknown) (no date) (unknown) (unknown) Narrative (units unknown) (unknown) (unknown) (no date) (unknown) (unknown) Neuro: clear s peech and normal cognition, A+O x3, GCS 15, no focal motor or (units unknown) (unknown) (unknown) (no date) (unknown) (unknown) New (units unknown) (unknown) (unknown) (no date) (unknown) (unknown) ONE (units unknown) (unknown) (unknown) (no date) (unknown) (unknown) Ordered cephal exin and hydrocodone for patient's pain (units unknown) (unknown) (unknown) (no date) (unknown) (unknown) Ordered: (units unknown) (unknown) (unknown) (no date) (unknown) (unknown) Orders (units unknown) (unknown) (unknown) (no date) (unknown) (unknown) Oxygen Deliver y Method Room Air (units unknown) (unknown) (unknown) (no date) (unknown) (unknown) Oxygen Delivery Meth od (units unknown) (unknown) (unknown) (no date) (unknown) (unknown) PROCEDURE:? XR HIP W PEL IF DONE LT 2V (units unknown) (unknown) (unknown) (no date) (unknown) (unknown) PROCEDURE:? XR LUMBAR SPINE 2-3V (units unknown) (unknown) (unknown) (no date) (unknown) (unknown) Patient Dispos ition: Home (units unknown) (unknown) (unknown) (no date) (unknown) (unknown) Patient History (uni ts unknown) (unknown) (unknown) (no date) (unknown) (unknown) Patient does n ot have history here in the emergency department to review. She (units unknown) (unknown) (unknown) (no date) (unknown) (unknown) Patient: Miranda Allen MR#: M (units unknown) (unknown) (unknown) (no date) (unknown) (unknown) Pertinent charlee rds include: No prior records available for review (units unknown) (unknown) (unknown) (no date) (unknown) (unknown) Please follow- up with your regular doctor and have her urine tested in 1 week to (units unknown) (unknown) (unknown) (no date) (unknown) (unknown) Prescriptions: (unit s unknown) (unknown) (unknown) (no date) (unknown) (unknown) Previous Rx's (units unknown) (unknown) (unknown) (no date) (unknown) (unknown) Pulse Oximetry 95 98 (units unknown) (unknown) (unknown) (no date) (unknown) (unknown) Pulse Oximetry 97 98 (units unknown) (unknown) (unknown) (no date) (unknown) (unknown) Pulse Oximetry 98 03/13/23 15:31 (units unknown) (unknown) (unknown) (no date) (unknown) (unknown) Pulse Oximetry 98 99 98 (units unknown) (unknown) (unknown) (no date) (unknown) (unknown) Pulse Oximetry 98 99 (units unknown) (unknown) (unknown) (no date) (unknown) (unknown) Pulse Rate 57 L 03/13/23 15:31 (units unknown) (unknown) (unknown) (no date) (unknown) (unknown) Pulse Rate 57 L 54 L (units unknown) (unknown) (unknown) (no date) (unknown) (unknown) Pulse Rate 57 L 55 L 57 L (units unknown) (unknown) (unknown) (no date) (unknown) (unknown) Pulse Rate 57 L 61 ( units unknown) (unknown) (unknown) (no date) (unknown) (unknown) Pulse Rate 60 57 L ( units unknown) (unknown) (unknown) (no date) (unknown) (unknown) Qualifiers: (units unknown) (unknown) (unknown) (no date) (unknown) (unknown) Questions are addressed and there is agreement with the plan and for follow-up. (units unknown) (unknown) (unknown) (no date) (unknown) (unknown) ROS Unobtainab le: All systems reviewed + are unremarkable except as noted in HPI (units unknown) (unknown) (unknown) (no date) (unknown) (unknown) Radiologist's Impression: (units unknown) (unknown) (unknown) (no date) (unknown) (unknown) Related Data (units unknown) (unknown) (unknown) (no date) (unknown) (unknown) Respiratory Rate 18 (units unknown) (unknown) (unknown) (no date) (unknown) (unknown) Respiratory Rate (un its unknown) (unknown) (unknown) (no date) (unknown) (unknown) Respiratory: n ormal work of breathing, without tachypnea or hypoxia. (units unknown) (unknown) (unknown) (no date) (unknown) (unknown) Review of Systems (u nits unknown) (unknown) (unknown) (no date) (unknown) (unknown) Reviewed vital s signs and nursing notes. (units unknown) (unknown) (unknown) (no date) (unknown) (unknown) Signed By: (units unknown) (unknown) (unknown) (no date) (unknown) (unknown) Skin: brisk ca pillary refill, without rash or wound (units unknown) (unknown) (unknown) (no date) (unknown) (unknown) Smoking Status : Never smoker (units unknown) (unknown) (unknown) (no date) (unknown) (unknown) Social History (units unknown) (unknown) (unknown) (no date) (unknown) (unknown) Social conside rations that may affect disposition: none (units unknown) (unknown) (unknown) (no date) (unknown) (unknown) Soft tissues:? Overlying bowel gas pattern is normal.? No suspicious soft tissue (units unknown) (unknown) (unknown) (no date) (unknown) (unknown) Soft tissues:? The visualized bowel gas pattern is normal.? No suspicious soft (units unknown) (unknown) (unknown) (no date) (unknown) (unknown) Source: patien t and EMS (units unknown) (unknown) (unknown) (no date) (unknown) (unknown) Stand Alone Fo carlene: Patient Portal/API (units unknown) (unknown) (unknown) (no date) (unknown) (unknown) Stated complai nt: Left Hip Pain (units unknown) (unknown) (unknown) (no date) (unknown) (unknown) Stop: 03/13/23 15:48 (units unknown) (unknown) (unknown) (no date) (unknown) (unknown) Substance Use Type: does not use (units unknown) (unknown) (unknown) (no date) (unknown) (unknown) TECHNIQUE:? 3 views of the lumbar spine were acquired.? (units unknown) (unknown) (unknown) (no date) (unknown) (unknown) TECHNIQUE:? AP pelvis with lateral view(s) of the left hip(s).? (units unknown) (unknown) (unknown) (no date) (unknown) (unknown) Temperature 98.0 F ( units unknown) (unknown) (unknown) (no date) (unknown) (unknown) Temperature (units unknown) (unknown) (unknown) (no date) (unknown) (unknown) This is a 73-y ear-old female who lives at an assisted living facility with a (units unknown) (unknown) (unknown) (no date) (unknown) (unknown) Time Seen by Mykel hemphill: 03/13/23 15:47 (units unknown) (unknown) (unknown) (no date) (unknown) (unknown) Ur Culture Ind icated? Specimen cultured (units unknown) (unknown) (unknown) (no date) (unknown) (unknown) Ur Squamous Ep ith Cells 1-5 /hpf (0-5/HPF) (units unknown) (unknown) (unknown) (no date) (unknown) (unknown) Urinary tract infection type: site unspecified Hematuria presence: without (units unknown) (unknown) (unknown) (no date) (unknown) (unknown) Urinary tract infection (units unknown) (unknown) (unknown) (no date) (unknown) (unknown) Urine Bacteria Moderate (10-30) H (None) (units unknown) (unknown) (unknown) (no date) (unknown) (unknown) Urine Culture Stat ( units unknown) (unknown) (unknown) (no date) (unknown) (unknown) Urine Dip (units unknown) (unknown) (unknown) (no date) (unknown) (unknown) Urine Microscopic St at (units unknown) (unknown) (unknown) (no date) (unknown) (unknown) Urine RBC None seen (0-5/HPF) (units unknown) (unknown) (unknown) (no date) (unknown) (unknown) Urine Specific [place] 1.015 (units unknown) (unknown) (unknown) (no date) (unknown) (unknown) Urine WBC 30-1 00/hpf H (0-5/HPF) (units unknown) (unknown) (unknown) (no date) (unknown) (unknown) Vital Signs - 8 hr ( units unknown) (unknown) (unknown) (no date) (unknown) (unknown) Vital Signs (units unknown) (unknown) (unknown) (no date) (unknown) (unknown) Vital signs: (units unknown) (unknown) (unknown) (no date) (unknown) (unknown) XR hip w pel i f done LT 2V Stat (units unknown) (unknown) (unknown) (no date) (unknown) (unknown) XR lumbar spin e 2-3V Stat (units unknown) (unknown) (unknown) (no date) (unknown) (unknown) [ ] New medica tion prescriptions sent to your pharmacy: [ ] (units unknown) (unknown) (unknown) (no date) (unknown) (unknown) [ ] No new med ications given (units unknown) (unknown) (unknown) (no date) (unknown) (unknown) [ x] New medic ation written as a paper prescription (units unknown) (unknown) (unknown) (no date) (unknown) (unknown) 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 (units unknown) (unknown) (unknown) (no date) (unknown) (unknown) afebrile, obese (uni ts unknown) (unknown) (unknown) (no date) (unknown) (unknown) alcohol intake frequency: other (units unknown) (unknown) (unknown) (no date) (unknown) (unknown) and below (units unknown) (unknown) (unknown) (no date) (unknown) (unknown) and she has hi story of bilateral knee pain. She denies recent fall but states (units unknown) (unknown) (unknown) (no date) (unknown) (unknown) and the lumbar spine.? Degenerative endplate changes, disc space loss, and (units unknown) (unknown) (unknown) (no date) (unknown) (unknown) antibiotic kayden nge. I hope you feel better soon, it was a pleasure to meet you. (units unknown) (unknown) (unknown) (no date) (unknown) (unknown) appropriate fo r outpatient management. (units unknown) (unknown) (unknown) (no date) (unknown) (unknown) arthropathy, osteoarthritis, pyelonephritis (units unknown) (unknown) (unknown) (no date) (unknown) (unknown) at least for a n update. Let them know you were seen in the Emergency Department (units unknown) (unknown) (unknown) (no date) (unknown) (unknown) available for review, patient is p.o. tolerant, without nausea, vomiting (units unknown) (unknown) (unknown) (no date) (unknown) (unknown) bacteria and WBCs (u nits unknown) (unknown) (unknown) (no date) (unknown) (unknown) bilateral lowe r extremities. Her left foot is in a Orthoglass splint and she (units unknown) (unknown) (unknown) (no date) (unknown) (unknown) bony lesions.? Degenerative changes of the bilateral hips and bilateral (units unknown) (unknown) (unknown) (no date) (unknown) (unknown) calcifications.? (un its unknown) (unknown) (unknown) (no date) (unknown) (unknown) cephalexin 500 mg capsule 500 mg PO QID 7 days #28 caps 05/03/23 (units unknown) (unknown) (unknown) (no date) (unknown) (unknown) cephalexin 500 mg capsule (units unknown) (unknown) (unknown) (no date) (unknown) (unknown) chronic. (units unknown) (unknown) (unknown) (no date) (unknown) (unknown) compression de formity of T12, patient is nontender over this area so likely is (units unknown) (unknown) (unknown) (no date) (unknown) (unknown) deformity (units unknown) (unknown) (unknown) (no date) (unknown) (unknown) denies any brittany k pain, states that she is had a difficult time getting around due (units unknown) (unknown) (unknown) (no date) (unknown) (unknown) denies recent fever chills, states that she uses a PURE wick to void and bought (units unknown) (unknown) (unknown) (no date) (unknown) (unknown) department wor sening left-sided inguinal, hip and anterior thigh pain. She (units unknown) (unknown) (unknown) (no date) (unknown) (unknown) diarrhea, afeb rile, nontoxic appearing. (units unknown) (unknown) (unknown) (no date) (unknown) (unknown) edema, bilater al lower extremities are similar in nature (units unknown) (unknown) (unknown) (no date) (unknown) (unknown) endplate osteo phyte formation.? Mid and lower lumbar facet arthropathy.? No (units unknown) (unknown) (unknown) (no date) (unknown) (unknown) establish care with one of the [facility] primary care providers. (units unknown) (unknown) (unknown) (no date) (unknown) (unknown) extremities wi th equal strength. (units unknown) (unknown) (unknown) (no date) (unknown) (unknown) extremities, d enies weakness or sensation changes but states that she is just (units unknown) (unknown) (unknown) (no date) (unknown) (unknown) for the above problem. We will electronically transmit a record of today's note (units unknown) (unknown) (unknown) (no date) (unknown) (unknown) fractures.? (units unknown) (unknown) (unknown) (no date) (unknown) (unknown) had this anter ior left leg pain. States that both of her knees need replaced (units unknown) (unknown) (unknown) (no date) (unknown) (unknown) has follow-up scheduled. She denies any increased swelling to her lower (units unknown) (unknown) (unknown) (no date) (unknown) (unknown) hematuria Qual ified Code(s): N39.0 - Urinary tract infection, site not specified (units unknown) (unknown) (unknown) (no date) (unknown) (unknown) hydrocodone 5 mg-acetaminophen 325 1 tab PO BID PRN pain #14 tabs 03/13/23 (units unknown) (unknown) (unknown) (no date) (unknown) (unknown) hydrocodone-ac etaminop hen 5-325 mg tablet (units unknown) (unknown) (unknown) (no date) (unknown) (unknown) if your PCP or specialist is in our system. (units unknown) (unknown) (unknown) (no date) (unknown) (unknown) in plantar spl int, brisk cap refill to toes, no erythema or unilateral edema, no (units unknown) (unknown) (unknown) (no date) (unknown) (unknown) indeterminate but (u nits unknown) (unknown) (unknown) (no date) (unknown) (unknown) inguinal tende rness to palpation (units unknown) (unknown) (unknown) (no date) (unknown) (unknown) joints. (units unknown) (unknown) (unknown) (no date) (unknown) (unknown) left fractured foot from an injury a couple of weeks ago who presents emergency (units unknown) (unknown) (unknown) (no date) (unknown) (unknown) lesions.? Mode rate bilateral hip arthritic change.? Degenerative changes are (units unknown) (unknown) (unknown) (no date) (unknown) (unknown) level of care considerations and they were available for discussion and (units unknown) (unknown) (unknown) (no date) (unknown) (unknown) likely chronic anterior compression deformity of T12.? Moderate multilevel (units unknown) (unknown) (unknown) (no date) (unknown) (unknown) liquids down, fever greater than 101F, chills, or other concerning symptom. (units unknown) (unknown) (unknown) (no date) (unknown) (unknown) lower lumbar s pine.? Age-indeterminate but likely chronic anterior compression (units unknown) (unknown) (unknown) (no date) (unknown) (unknown) lumbar XR: (units unknown) (unknown) (unknown) (no date) (unknown) (unknown) lumbar (units unknown) (unknown) (unknown) (no date) (unknown) (unknown) make sure that it is improved. We will call you if you need to make an (units unknown) (unknown) (unknown) (no date) (unknown) (unknown) mg tablet (units unknown) (unknown) (unknown) (no date) (unknown) (unknown) midline spinal tenderness to palpation, full range of motion to bilateral lower (units unknown) (unknown) (unknown) (no date) (unknown) (unknown) of the T12 rc tebral body.? Otherwise, no evidence suggest acute compression (units unknown) (unknown) (unknown) (no date) (unknown) (unknown) osteoarthritis and likely sciatica anterior of your left leg from her low back. (units unknown) (unknown) (unknown) (no date) (unknown) (unknown) osteoarthritis , lumbar spine x-ray is significant for degenerative changes of (units unknown) (unknown) (unknown) (no date) (unknown) (unknown) pain pills to use in addition to Tylenol and ibuprofen as tolerated for your (units unknown) (unknown) (unknown) (no date) (unknown) (unknown) pain. Please s tera hydrated, drinking ensure you are getting good Lissa care. (units unknown) (unknown) (unknown) (no date) (unknown) (unknown) present (units unknown) (unknown) (unknown) (no date) (unknown) (unknown) prominent (units unknown) (unknown) (unknown) (no date) (unknown) (unknown) recommendation s regarding plan of care and diagnostic testing. Patient is (units unknown) (unknown) (unknown) (no date) (unknown) (unknown) sacroiliac (units unknown) (unknown) (unknown) (no date) (unknown) (unknown) sensation deficits ( units unknown) (unknown) (unknown) (no date) (unknown) (unknown) shows WBCs and bacteria, urine is pending for culture, patient without flank (units unknown) (unknown) (unknown) (no date) (unknown) (unknown) spine (units unknown) (unknown) (unknown) (no date) (unknown) (unknown) spondylosis. (units unknown) (unknown) (unknown) (no date) (unknown) (unknown) suspicious bony (uni ts unknown) (unknown) (unknown) (no date) (unknown) (unknown) suspicious (units unknown) (unknown) (unknown) (no date) (unknown) (unknown) tenderness dontae at with cephalexin q.i.d. x7 days, no prior urine cultures (units unknown) (unknown) (unknown) (no date) (unknown) (unknown) that she is solorio d multiple falls this year with her most recent fall in February. (units unknown) (unknown) (unknown) (no date) (unknown) (unknown) the bilateral sacroiliac joints lateral hips, age indeterminate anterior (units unknown) (unknown) (unknown) (no date) (unknown) (unknown) the (units unknown) (unknown) (unknown) (no date) (unknown) (unknown) this infection under control. Please finish these antibiotics, I have given you (units unknown) (unknown) (unknown) (no date) (unknown) (unknown) tissue (units unknown) (unknown) (unknown) (no date) (unknown) (unknown) to this. She h as not walked in quite some time, has notable foot drop to (units unknown) (unknown) (unknown) (no date) (unknown) (unknown) to: Urinary tr act infection, lumbar radiculopathy, degenerative joint disease, (units unknown) (unknown) (unknown) (no date) (unknown) (unknown) well as prior records if available. (units unknown) (unknown) (unknown) (no date) (unknown) (unknown) which is posit bianca for leukocytes 3+, sent for urine microscopy positive for (units unknown) (unknown) (unknown) (no date) (unknown) (unknown) within the low er lumbar spine. (units unknown) (unknown) Result panel 8 (unknown) (no date) (unknown) (unknown) >100,000 cfu/ml (unknow n) (unknown) (no date) (unknown) (unknown) GNBGram negati ve bacilli (units unknown) (unknown) (unknown) (no date) (unknown) (unknown) Identification and Sensitivity to Follow (units unknown) (unknown) Result panel 9 (unknown) (no date) (unknown) (unknown) >100,000 cfu/ml (unknow n) (unknown) (no date) (unknown) (unknown) <=0.12 (units unknown) (unknown) (unknown) (no date) (unknown) (unknown) <=0.25 (units unknown) (unknown) (unknown) (no date) (unknown) (unknown) <=0.5 (units unknown) (unknown) (unknown) (no date) (unknown) (unknown) <=1 (units unknown) (unknown) (unknown) (no date) (unknown) (unknown) <=16 (units unknown) (unknown) (unknown) (no date) (unknown) (unknown) <=2 (units unknown) (unknown) (unknown) (no date) (unknown) (unknown) <=20 (units unknown) (unknown) (unknown) (no date) (unknown) (unknown) <=4 (units unknown) (unknown) (unknown) (no date) (unknown) (unknown) 4 (units unknown) (unknown) (unknown) (no date) (unknown) (unknown) ESCCOLEscherichia co li (units unknown) (unknown) (unknown) (no date) (unknown) (unknown) No Further Workup (u nits unknown) (unknown) Social History date description facility 2023-03-13 00:00 Never smoked tobacco ([facility] Vital Signs date measurement value units 2023-03-13 00:00 BMI 49.0 kg/m2 2023-03-13 00:00 BP_diastolic 57 mmHg 2023-03-13 00:00 BP_systolic 117 mmHg 2023-03-13 00:00 heart_rate 61 /min 2023-03-13 00:00 height_metric 160.02 cm 2023-03-13 00:00 height_standard 63 in 2023-03-13 00:00 o2_saturation 99 % 2023-03-13 00:00 respiration_rate 18 /min 2023-03-13 00:00 temperature_metric 36.67 C 2023-03-13 00:00 temperature_standard 98 F 2023-03-13 00:00 weight_metric 125.64 kg 2023-03-13 00:00 weight_standard 276.99 lb
--- NOTE | 2023-04-04 17:16 | XRAY Report ---
PROCEDURE: Foot 3 View LT INDICATIONS: TOE INFECTION 9ALSO FU ON FX) TECHNIQUE: 3 views of the foot were acquired. COMPARISON: 02/20/2023 FINDINGS: Bones: Comminuted and impacted talar fracture. Given positioning, the posterior subtalar joint is no t well evaluated. The tibiotalar articulation appears mildly widened to the extent it is seen. There is a healed, nonunited fifth metatarsal fracture. Diffuse demineralization. No suspicious periostitis or erosive change at the digits. Soft tissues: No soft tissue gas, radiodense foreign body, or an usual calcification. IMPRESSION: 1. No radiographic changes of osteomyelitis in the digits. If there is ongoing concern, MR of the wilian t is recommended. 2. Probably stable appearance of comminuted talar fracture fragments. 3. Chronic appearing fifth metatarsal fracture. Reviewed by: Vicky Berrios MD on 04/04/2023 5:15 PM PDT Approved by: Vicky Berrios MD on 04/04/2023 5:15 PM PDT Station ID: [id number]
== END 2023-04-04 17:09 | disposition home or self-care (01) ==
LOC: EDUNIT# → EDBD → ED 15:15
DX: L03.032 Cellulitis of left toe (principal); S92.352D Displaced fracture of fifth metatarsal bone, left foot, subsequent encounter for fracture with routine healing; X58.XXXD Exposure to other specified factors, subsequent encounter
CPT/HCPCS: 99283; 99284

== ENCOUNTER 2023-04-04 17:01 | Outpatient (CLI) | payer MEDICARE, OTHER | END 2023-04-04 17:02 | disposition home or self-care (01) | LOC: EMS 17:01 | PROVIDERS: ATTEND Emergency Medicine | DX: L03.116 Cellulitis of left lower limb (principal); Z74.01 Bed confinement status; S92.902D Unspecified fracture of left foot, subsequent encounter for fracture with routine healing; X58.XXXD Exposure to other specified factors, subsequent encounter | CPT/HCPCS: A0425; A0428 ==

== ENCOUNTER 2024-06-26 08:00 | Outpatient (CLI) | payer MEDICARE, MEDICAID ==
[2024-06-26 18:24] LABS: BASOPHILS % (AUTO) 0.4 %; EOSINOPHILS # (AUTO) 0.1 10^3/uL (0.0-0.7); EOSINOPHILS % (AUTO) 1.3 %; HCT - HEMATOCRIT 34.6 % (37.0-47.0); LYMPHOCYTES # (AUTO) 1.7 10^3/uL (1.5-3.5); LYMPHOCYTES % (AUTO) 17.1 %; MEAN CORPUSCULAR HEMOGLOBIN 27.8 pg (27.0-31.0); MEAN CORPUSCULAR HGB CONC 31.8 g/dL (32.0-36.0); MEAN CORPUSCULAR VOLUME 87.4 fL (81.0-99.0); MEAN PLATELET VOLUME 12.8 fL (7.9-10.8); MONOCYTES # (AUTO) 0.8 10^3/uL (0.0-1.0); MONOCYTES % (AUTO) 7.9 %; NEUTROPHILS # (AUTO) 7.4 10^3/uL (1.5-6.6); PLT - PLATELET COUNT 211 10^3/uL (130-450); RED BLOOD COUNT 3.96 10^6/uL (4.20-5.40); RED CELL DISTRIBUTION WIDTH 13.4 % (12.0-15.0); WHITE BLOOD COUNT 10.1 x10^3/uL (4.8-10.8)
[2024-06-26 18:32] LABS: CALCIUM 9.5 mg/dL (8.5-10.3); CREATININE 0.7 mg/dL (0.6-1.3); POTASSIUM 3.9 mmol/L (3.5-4.5)
[2024-06-26 21:06] LABS: ESTIMATED AVERAGE GLUCOSE 114 mg/dL (70-100); HEMOGLOBIN A1c% 5.6 % (4.27-6.07)
== END 2024-06-26 23:59 | disposition home or self-care (01) ==
LOC: LAB.R 08:00
DX: M62.59 Muscle wasting and atrophy, not elsewhere classified, multiple sites (principal); R73.09 Other abnormal glucose; E66.01 Morbid (severe) obesity due to excess calories
CPT/HCPCS: 80048; 83036; 85025